=== PATIENT | female | born 1960 | race Caucasian/White ===

== ENCOUNTER → 2024-01-22 12:55 | Outpatient (REF) | payer OTHER, SELFPAY | LOC: DHCBC MAIN 12:55 | PROVIDERS: ATTENDING PHYSICIAN Internal Medicine Cardiovascular Disease; FAMILY PHYSICIAN Family Medicine | DX: I35.0 Nonrheumatic aortic (valve) stenosis (principal) | CPT/HCPCS: 93306 ==

== ENCOUNTER → 2024-06-17 13:54 | Outpatient (REF) | payer OTHER, SELFPAY | LOC: RCS 13:54 | PROVIDERS: ATTENDING PHYSICIAN Internal Medicine Cardiovascular Disease; FAMILY PHYSICIAN Family Medicine | DX: I35.0 Nonrheumatic aortic (valve) stenosis (principal) | CPT/HCPCS: 93306 ==

== ENCOUNTER 2024-07-24 10:53 | Day surgery (SDC) | payer OTHER, SELFPAY ==
[2024-07-24] VITALS (9 sets, daily range): BP systolic 106–152; BP diastolic 41–96; BMI 31.2
[2024-07-24] MEDS: NSS 247 ML IV (12:03)
--- NOTE | 2024-07-24 13:25 | ITS.CL.CATH ---
First Sampler - Catheterization
Cardiac Catheterization
Procedure Report:
CARDIAC CATHETERIZATION REPORT
Date of Procedure: 07/24/2024
Referring: Dr. Joanna Nolan
Indication: severe
PROCEDURE:
1. Coronary angiography.
ACCESS:
6 [place]ijian right radial artery.
CATHETERS:
1. 5 [place] JL3.5.
2. 5 [place] JR4.
CORONARY ANGIOGRAPHY
Dominance: right
LM: normal
LAD: large vessel giving rise to a large D1 and wrapping around the apex. No CAD.
LCx: large vessel giving rise to a small OM1/ramus, large OM2, and moderate-caliber OM3. No CAD.
RCA: large vessel giving rise to a medium caliber RPDA and several small RPL branches. No CAD.
Closure Device: TR band
Radiation dose (mGy): 254.82
DAP (cm2.Gy): 26.4814
Fluoroscopy time (minutes): 11.6
CONCLUSIONS:
1. Normal coronary arteries in a right dominant system
RECOMMENDATIONS:
1. Expectant management after cardiac catheterization via right approach
2. Primary prevention of coronary artery disease
3. Proceed with workup for surgical AVR
Copy to: Dr. Joanna Nolan; Dr. Willy Frye
Signed: Chin Mukherjee MD, PhD
[2024-07-24] MEDS: NSS 1000 IV (13:30)
== END 2024-07-24 16:30 | disposition home or self-care (01) ==
LOC: CATH 10:53
PROVIDERS: ATTENDING PHYSICIAN Student in an Organized Health Care Education/Training Program; FAMILY PHYSICIAN Family Medicine; OTHER PHYSICIAN Internal Medicine Cardiovascular Disease
DX: I08.0 Rheumatic disorders of both mitral and aortic valves (principal); Z79.82 Long term (current) use of aspirin; Z79.899 Other long term (current) drug therapy
CPT/HCPCS: 93454; 93458; C1894; Q9967

== ENCOUNTER → 2024-07-30 14:31 | Outpatient (REF) | payer OTHER, SELFPAY | LOC: HWRAD 14:31 | PROVIDERS: ATTENDING PHYSICIAN Thoracic Surgery (Cardiothoracic Vascular Surgery); FAMILY PHYSICIAN Family Medicine | DX: I35.0 Nonrheumatic aortic (valve) stenosis (principal); Z01.810 Encounter for preprocedural cardiovascular examination | CPT/HCPCS: 71275; Q9967 ==

== ENCOUNTER 2024-08-25 04:59 | Inpatient (IN) | payer OTHER, SELFPAY ==
[2024-08-14 10:06] LABS: % Basophils 0.5 % (0-2); % Immature Granulocytes 0.4 % (0-0.5); % Lymphocytes 22.7 % (20.5-51.1); % Monocytes 8.6 % (1.7-9.3); % Neutrophils 65.8 % (42.2-75.2); Absolute Eosinophils 0.2 10^3/uL (0-0.7); Absolute Lymphocytes 1.9 10^3/uL (1.2-3.4); Absolute Monocytes 0.7 10^3/uL (0.1-0.6); Absolute Neutrophils 5.5 10^3/uL (1.4-6.5); Hemoglobin 13.7 g/dL (12.0-16.0); Mean Corp Hgb Conc. 33.4 g/dL (33.0-37.0); Mean Corpuscular Hgb 29.9 pg (27.0-31.0); Mean Corpuscular Volume 89.5 fL (81.0-99.0); Mean Platelet Volume 10.9 fL (7.4-10.4); Nucleated Red Blood Cells % 0 %; Platelet Count 229 10^3/uL (130-400); Red Blood Cell Count 4.58 10^6/uL (4.20-5.40); Red Cell Dist. Width 12.6 % (11.5-14.5); White Blood Cell Count 8.4 10^3/uL (4.8-10.8)
[2024-08-14 10:07] LABS: Urine Albumin Negative (Neg - Trace); Urine Bilirubin Negative (Negative); Urine Character Clear (Clear); Urine Color Straw; Urine Glucose Negative (Negative); Urine Ketone Negative (Negative); Urine Leukocyte Negative (Negative); Urine Nitrite Negative (Negative); Urine Occult Blood Negative (Negative); Urine Specific Gravity 1.005 (<1.030); Urine Urobilinogen Negative (Neg - 1+)
--- NOTE | 2024-08-14 10:10 | CM ---
Met with Mrs. Angulo in [facility] She states prior to admission she resides with her spouse in a one story home with one step to enter. She states she has a full basement but she does not need to go down there. She states prior to admission she was
independent with ambulation and adls. She states she does not have any DME in the home. She states she has a prescription plan. She states her spouse maybe able to wharf worker for the first week when she goes home. The discharge plan is to
return home with her spouse and a home visit by the Cardiothoracic Transitional Care NUrse when medically stable.
We reviewed pre-op and post-op routines. We reviewed the shower instructions. She has the soap, written instructions and the Cardiothoracic Surgery Educational Booklet. We also reviewed restrictions including sternal restrictions and driving
restrictions. We discussed a home visit by the Cardiothoracic Transitional Care Nurse. She is agreeable to a home visit. The plan is for AVR on Sunday, August 25, 2024.
[2024-08-14 10:13] LABS: INR 0.97; PT 12.7 Sec (11.4-14.6)
[2024-08-14 10:14] LABS: APTT 31.6 Sec (23.4-35.0)
[2024-08-14 10:25] LABS: ALT (SGPT) 28 U/L (0-35); AST (SGOT) 33 U/L (14-36); Alkaline Phosphatase 93 U/L (38-126); Blood Urea Nitrogen 9 mg/dl (7-17); Carbon Dioxide 26 mmol/L (22-30); Chloride 99 mmol/L (98-107); Direct Bilirubin 0.2 mg/dl (0.0-0.4); Glucose 97 mg/dl (70-99); Potassium 4.1 mmol/L (3.5-5.1); Sodium 140 mmol/L (135-145); Total Bilirubin 0.6 mg/dl (0.2-1.3); Total Protein 7.6 g/dl (6.3-8.2); eGFR > 60.00
[2024-08-14 11:09] LABS: Glycohemoglobin (HgbA1c) 5.9 % (4.0-5.6)
[2024-08-25] VITALS (15 sets, daily range): BP systolic 91–125; BP diastolic 49–66; BMI 30.1
[2024-08-25] MEDS: PROTONIX 40 MG PO (05:21)
[2024-08-25] MEDS: MAGNESIUM OXIDE 500 MG PO (05:21)
[2024-08-25] MEDS: BACTROBAN 2% OINTMENT 1 APPLIC NASAL ×2 (05:21→20:13)
[2024-08-25] MEDS: LOPRESSOR 25 MG PO (05:21)
--- NOTE | 2024-08-25 05:30 | PTCARENOTE ---
pt admitted into room 2260. VS and weight obtained. pt confirms 2 showers @ home and NPO since 2029 yesterday. admission questions and med rec completed. clip prep and CHG cloth bath done. ABO drawn and sent. pre-op meds given. now at
beside.
--- NOTE | 2024-08-25 06:35 | W.CVOR.SURPR ---
CVOR Surgeon Immed Pre Op
-
I have examined this patient prior to performance of the scheduled procedure.
The patient's condition is unchanged from the time of the dictated/written History and
Physical and the patient is able to undergo the scheduled procedure.
SAVR possible root enlagement
[2024-08-25 07:09] LABS: ACT+ - POC 96 Seconds (82-134)
[2024-08-25 07:22] LABS: Urine Albumin Negative (Neg - Trace); Urine Bilirubin Negative (Negative); Urine Character Clear (Clear); Urine Color Straw; Urine Glucose Negative (Negative); Urine Ketone Negative (Negative); Urine Leukocyte Negative (Negative); Urine Nitrite Negative (Negative); Urine Occult Blood 1+ (Negative); Urine Urobilinogen Negative (Neg - 1+)
[2024-08-25 08:04] LABS: Urine Squamous Cell 0-2 /LPF (Few)
[2024-08-25 08:05] LABS: Urine Amorphous Seen; Urine Red Blood Cell 0-2 /HPF (0-2); Urine White Cell 0-2 /HPF (0-5)
[2024-08-25 08:06] LABS: Urine Mucus Few
[2024-08-25 08:29] LABS: B.E. - POC -2.4 mmol/L; Glucose - POC 123 mg/dl (70-99); HCO3 - POC 23 mmol/L (21-29); Hematocrit - POC 34 % PCV (37-47); Hemodilution- POC No; Hemoglobin Calculated - POC 11.6; Ionized Calcium - POC 1.19 mmol/L (1.12-1.27); PCO2 - POC 40 mmHg (35-45); PO2 - POC 445 mmHg (80-100); Potassium - POC 3.9 mmol/L (3.6-5.0); Sodium - POC 142 mmol/L (135-145); pH - POC 7.37 (7.35-7.45)
[2024-08-25 08:52] LABS: ACT+ - POC > 1003 Seconds (82-134)
[2024-08-25 08:52] LABS: ACT+ - POC > 1003 Seconds (82-134)
[2024-08-25 08:59] LABS: Glucose - POC 148 mg/dl (70-99); HCO3 - POC 27 mmol/L (21-29); Hematocrit - POC 27 % PCV (37-47); Hemodilution- POC Yes; Hemoglobin Calculated - POC 9.1; Ionized Calcium - POC 0.95 mmol/L (1.12-1.27); PCO2 - POC 33 mmHg (35-45); PO2 - POC 415 mmHg (80-100); Potassium - POC 4.3 mmol/L (3.6-5.0); Sodium - POC 139 mmol/L (135-145); pH - POC 7.52 (7.35-7.45)
[2024-08-25 09:27] LABS: B.E. - POC 1.8 mmol/L; Glucose - POC 154 mg/dl (70-99); HCO3 - POC 25 mmol/L (21-29); Hematocrit - POC 24 % PCV (37-47); Hemodilution- POC Yes; Hemoglobin Calculated - POC 8.3; Ionized Calcium - POC 1.03 mmol/L (1.12-1.27); O2 Saturation %Calculated-POC 99.9 5 (92-96); PCO2 - POC 34 mmHg (35-45); PO2 - POC 291 mmHg (80-100); Potassium - POC 4.7 mmol/L (3.6-5.0); Sodium - POC 140 mmol/L (135-145); pH - POC 7.48 (7.35-7.45)
--- NOTE | 2024-08-25 09:46 | W.PN.CD ---
Addendum entered and electronically signed by Atif Lara MD 08/25/24 12:53:
I saw and examined the patient.
The DIE FILER's note was reviewed and I agree with the note.
Comment: 63F with hypertension, dyslipidemia, and severe aortic stenosis presents for AVR.
- complicated surgery
- wean levo as able
- continue supportive care
Original Note:
Today's Communication / Plan
-
Follow telemetry
Postoperative management per CT surgery
Impression / Plan
-
BACKGROUND: 63F with hypertension, dyslipidemia, and severe aortic stenosis presents for AVR
Customer Solutions Representative: Dr. Nolan
Severe aortic stenosis s/p aortic root enlargement and surgical aortic valve replacement (23 mm bioprosthesis) 08/25/[address] Frye
-Preop LVEF 65%, postop hyperdynamic with an EF of 65-70%, initially coming off bypass she had some RV dysfunction that resolved with resting on bypass
-Postop mean gradient 10 mmHg
-EKG shows sinus rhythm with prolonged QTc, EKG in a.m.
-1 unit PRBC IntraOp and 2 bowls of Cell Saver
-Upon chest closure, she had sudden ST changes and hypotension, pressure drove up with MAP of 70s which resulted in resolution of ST segment elevation which is likely consistent with a air in the right coronary ostium
-On Levophed
-Postoperative management per CT surgery
Hypertension, losartan 50 mg on hold
Dyslipidemia, on rosuvastatin 40 mg and ezetimibe 10mg, resume when able
Prediabetes, HbA1c 5.9%
Chronic migraines
DATA:
Transthoracic echocardiogram, 06/17/2024:
Normal left ventricular size with mild concentric remodeling and normal
systolic function. No regional wall motion abnormalities are seen. LV ejection
fraction is 65-70% by Mcmahon's method of discs. Stage I diastolic dysfunction
suggestive of abnormal relaxation.
Normal right ventricular size and function.
Normal atria.
Mildly thickened mitral valve leaflets with calcification of the anterior mitral leaflet tip.
Thickened aortic valve with restricted leaflet motion, severe aortic stenosis and moderate insufficiency.
No evidence of pulmonary hypertension.
Coronary angiography, 07/24/2024:
Dominance: right
LM: normal
LAD: large vessel giving rise to a large D1 and wrapping around the apex. No CAD.
LCx: large vessel giving rise to a small OM1/ramus, large OM2, and moderate-caliber OM3. No CAD.
RCA: large vessel giving rise to a medium caliber RPDA and several small RPL branches. No CAD.
Physical Exam
Vital Signs/Labs
Vital Signs
Temp Pulse Resp Pulse Ox
98.0 F 91 17 99
08/25/24 05:04 08/25/24 05:04 08/25/24 05:04 08/25/24 05:04
08/24/24 08/25/24 08/26/24
06:59 06:59 06:59
Actual Weight 82.1 kg
08/14/24 08:47
08/14/24 08:47
PT 12.7 Sec (11.4-14.6) 08/14/24 08:47
INR 0.97 08/14/24 08:47
APTT 31.6 Sec (23.4-35.0) 08/14/24 08:47
Physical Exam
Constitutional: No acute distress and Comfortable
EENT: Anicteric and Moist mucous membranes
Cardiovascular: Rhythm & rate is regular, Pedal edema is absent and S1S2 is normal
Respiratory: Lungs clear to auscul. and Other (Mechanical ventilation)
GI: Soft, Distention absent, Flat, Non tender and Normal bowel sounds
Neuro/Psych: Other (Sedated)
Other: Skin (Warm and dry)
Data Reviewed
-
Date of Service: August 25, 2024
[2024-08-25 09:55] LABS: Glucose - POC 103 mg/dl (70-99); HCO3 - POC 24 mmol/L (21-29); Hematocrit - POC 27 % PCV (37-47); Hemodilution- POC Yes; Hemoglobin Calculated - POC 9.2; Ionized Calcium - POC 1.14 mmol/L (1.12-1.27); O2 Saturation %Calculated-POC 99.9 5 (92-96); PCO2 - POC 35 mmHg (35-45); PO2 - POC 323 mmHg (80-100); Potassium - POC 3.6 mmol/L (3.6-5.0); Sodium - POC 142 mmol/L (135-145); pH - POC 7.44 (7.35-7.45)
[2024-08-25 10:11] LABS: ACT+ - POC 911 Seconds (82-134)
[2024-08-25 10:13] LABS: B.E. - POC 0.9 mmol/L; Glucose - POC 77 mg/dl (70-99); HCO3 - POC 25 mmol/L (21-29); Hematocrit - POC 26 % PCV (37-47); Hemodilution- POC Yes; Hemoglobin Calculated - POC 8.9; Ionized Calcium - POC 1.13 mmol/L (1.12-1.27); PCO2 - POC 36 mmHg (35-45); PO2 - POC 368 mmHg (80-100); Potassium - POC 3.4 mmol/L (3.6-5.0); Sodium - POC 143 mmol/L (135-145); pH - POC 7.45 (7.35-7.45)
[2024-08-25 10:24] LABS: ACT+ - POC 555 Seconds (82-134)
[2024-08-25 10:38] LABS: B.E. - POC -0.5 mmol/L; Glucose - POC 78 mg/dl (70-99); HCO3 - POC 24 mmol/L (21-29); Hematocrit - POC 26 % PCV (37-47); Hemodilution- POC Yes; Ionized Calcium - POC 1.08 mmol/L (1.12-1.27); PCO2 - POC 37 mmHg (35-45); PO2 - POC 354 mmHg (80-100); POC Comment WARM; Potassium - POC 3.9 mmol/L (3.6-5.0); Sodium - POC 144 mmol/L (135-145); pH - POC 7.42 (7.35-7.45)
[2024-08-25 10:50] LABS: ACT+ - POC 640 Seconds (82-134)
[2024-08-25 10:56] LABS: Glucose - POC 86 mg/dl (70-99); HCO3 - POC 24 mmol/L (21-29); Hematocrit - POC 23 % PCV (37-47); Hemodilution- POC Yes; Hemoglobin Calculated - POC 7.7; Ionized Calcium - POC 1.41 mmol/L (1.12-1.27); PCO2 - POC 33 mmHg (35-45); PO2 - POC 545 mmHg (80-100); Potassium - POC 3.5 mmol/L (3.6-5.0); Sodium - POC 144 mmol/L (135-145); pH - POC 7.47 (7.35-7.45)
[2024-08-25 11:02] LABS: ACT+ - POC 159 Seconds (82-134)
--- NOTE | 2024-08-25 11:26 | CM ---
Chart reviewed. Patient is in the OR today. Patient is independent of ADLS, lives with her in a 1 STH, 1 SOFIYA, 0 DME. Plan is for the patient to return home with CT Transitional RN. CM to follow
[2024-08-25 11:40] LABS: ACT+ - POC > 1003 Seconds (82-134)
[2024-08-25 11:40] LABS: ACT+ - POC > 1003 Seconds (82-134)
[2024-08-25 11:46] LABS: B.E. - POC -4.4 mmol/L; Glucose - POC 111 mg/dl (70-99); HCO3 - POC 20 mmol/L (21-29); Hematocrit - POC 24 % PCV (37-47); Hemodilution- POC Yes; Hemoglobin Calculated - POC 8.1; Ionized Calcium - POC 1.22 mmol/L (1.12-1.27); PCO2 - POC 31 mmHg (35-45); PO2 - POC 608 mmHg (80-100); Potassium - POC 3.3 mmol/L (3.6-5.0); Sodium - POC 143 mmol/L (135-145); pH - POC 7.41 (7.35-7.45)
--- NOTE | 2024-08-25 11:47 | CON.INTV ---
Consultation
Consultation Request
Date/Time Consultation Requested: 08/25/2024 - 1127
Date/Time Consultation Performed: 08/25/2024 - 1143
Requesting Provider: Farrah Go PA-C
Performing Provider: Morgan Hoang MD
Reason for Consultation: SAVR
Medical History
-
Chief Complaint: Elective SAVR
History of Present Illness:
63-year-old female non-smoker with a past medical history of severe aortic stenosis, arthritis, hypercholesterolemia, hypertension and migraine headaches who presents with elective SAVR. Patient known to cardiothoracic surgery with Dr. Frye with
last office visit on 07/31/2024. Patient has history of nonrheumatic aortic valve stenosis which has progressed. Per recent echo in June 2024, her peak/mean gradient was 77/49 mmHg, respectively. Her CHAR reached threshold for severe stenosis at
0.7. LHC performed on 07/24/2024 shows normal coronary arteries and a right dominant system. Patient does endorse SOB when walking on incline with chest heaviness and intermittent lightheadedness and bendopnea. She says that her functional status
has declined especially when out in the heat. Surgical aortic valve replacement was discussed including its risks and benefits. Today she presents for SAVR which she obtained without any immediate complications and was transferred to the CVICU
postoperatively. Terminal System Operator services consulted for additional management/recommendations.
When I saw the patient, she was in bed, already extubated and currently on 6 L/min nasal cannula saturating 100%. Heart rate 78, BP via A-line 111/59, PAP: 25/17, CO/CI: 2.73/1.44, and BP via NIBP: 106/57. She is currently on insulin drip at 2.6
units/hr, Levophed at 1mcg/min. Mediastinal chest tubes x [address] Patient's , Watson, at bedside. All questions were answered. Patient is lethargic from recent sedation but otherwise has no complaints. She denies chest pain, SHIN,
abdominal pain, nausea, fevers or chills.
PMHx: Hypercholesterolemia, migraine headache, hypertension, severe aortic stenosis, arthritis, snoring
PSHx: , left bunionectomy, laparoscopic cholecystectomy, C4-7 ACDF, tubal ligation
Past Medical History
Past Medical History: Other (Above as per HPI)
Past Surgical History: Other (Above as per HPI)
Social History
Tobacco: Non-smoker
Alcohol: Occasional (Few drinks on the weekend)
Personal:
Living: With Family
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
Family History
Family History: CAD (Father: History of NV + valve replacement; Mother: CAD), Cancer (Mother: Lung cancer + breast cancer) and Other (Sibling + mother: A-fib)
Allergies / Home Medications
Allergies
Allergy/AdvReac Type Severity Reaction Status Date / Time
ketoconazole Allergy Rash Verified 08/11/24 11:11
Sulfa (Sulfonamide Allergy Hives Verified 08/11/24 11:11
Antibiotics)
sulfamethoxazole Allergy Unknown Verified 08/11/24 11:11
trimethoprim Allergy Unknown Verified 08/11/24 11:11
Home Medications
�Medication �Instructions �Recorded �Confirmed �Last Taken �Type
docusate sodium 100 mg capsule 300 mg PO DAILY 12/05/21 08/25/24 08/24/24 18:00 History
(Dulcolax Stool Softener
(docusate))
rosuvastatin 40 mg tablet 40 mg PO QPM 12/05/21 08/25/24 08/24/24 05:00 History
Lactobacillus acidophilus 3 tab PO DAILY 07/24/24 08/25/24 08/24/24 05:00 History
(Acidophilus chewable tablet)
aspirin 81 mg chewable tablet 81 mg PO DAILY 07/24/24 08/25/24 08/24/24 05:00 History
ezetimibe 10 mg tablet 10 mg PO QPM 07/24/24 08/25/24 08/24/24 18:00 History
fluticasone propionate 50 1 spray intranasal PRN PRN 07/24/24 08/25/24 08/24/24 05:00 History
mcg/actuation nasal allergies
spray,suspension
losartan 50 mg tablet 50 mg PO DAILY 07/24/24 08/25/24 08/22/24 05:00 History
pimecrolimus 1 % topical cream 1 applic topical PRN PRN dermatitis 07/24/24 08/25/24 08/23/24 History
polyethylene glycol 3350 17 gram 17 g PO DAILY 07/24/24 08/25/24 08/23/24 History
oral powder packet (Miralax)
triamcinolone acetonide 0.05 % 1 applic topical DAILY PRN rash 07/24/24 08/25/24 08/23/24 History
topical ointment
diphenhydramine HCl 25 mg capsule 25 mg PO HS PRN allergy symptoms 08/11/24 08/25/24 08/23/24 History
(Benadryl)
Review of Systems
-
History Source: Patient
All other systems: Negative unless noted
Vitals / Labs / Diagnostic Testing
Vital Signs
Temp Pulse Resp Pulse Ox
98.0 F 91 17 99
08/25/24 05:04 08/25/24 05:04 08/25/24 05:04 08/25/24 05:04
Diagnostic Testing:
Physical Exam
-
HEENT: Normocephalic and Anicteric
Cardiovascular: S1/S2, Rub and Peripheral Edema (negative)
Respiratory: Wheeze (negative), Rales (negative), Rhonchi (negative) and Non-Labored Respirations
GI: Soft, Non Distended, Non Tender and Normal Bowel Sounds
Neurology: Tremors (negative) and Other (Lethargic but answering questions appropriately)
Skin: Warm and Dry
General: Respiratory Distress (negative), Chills (negative) and Sweats (negative)
Assessment
-
Assessment: 63-year-old female non-smoker with a past medical history of severe aortic stenosis, arthritis, hypercholesterolemia, hypertension and migraine headaches who presents with elective SAVR. Patient known to cardiothoracic surgery with "Anil"Melva with last office visit on 07/31/2024. Patient has history of nonrheumatic aortic valve stenosis which has progressed. Per recent echo in June 2024, her peak/mean gradient was 77/49 mmHg, respectively. Her CHAR reached threshold for severe
stenosis at 0.7. LHC performed on 07/24/2024 shows normal coronary arteries and a right dominant system. Patient does endorse SOB when walking on incline with chest heaviness and intermittent lightheadedness and bendopnea. She says that her
functional status has declined especially when out in the heat. Surgical aortic valve replacement was discussed including its risks and benefits. On 08/25/2024, she underwent a SAVR without any immediate complications and was transferred to the
CVICU postoperatively. Terminal System Operator services consulted for additional management/recommendations.
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
Impression:
#Severe aortic stenosis with moderate insufficiency s/p SAVR (POD #0)
#Aortic root enlargement
#Hypertension
#Hypercholesterolemia
#Migraine headaches
#Snoring
Plan:
Patient was extubated today to nasal cannula and is currently saturating 100% on 6 L/min
prn nebulized bronchodilators � patient currently not bronchospastic
Pulmonary artery catheter parameters will be followed
Pressors/antihypertensive/inotropes/diuretics will be provided as needed
Maintain MAP>65
Replete electrolytes with K>4, Mg>2
Monitor chest tube output (mediastinal chest tubes x 2)
Monitor hemoglobin
Monitor platelet count and coags
Transfuse blood products as needed to maintain Hb>7g/dL, plt>50k (given post-operative status)
CT surgery managing chest tubes
Monitor blood sugar to maintain euglycemia with goal BG 140-180
Insulin drip per protocol
Aspiration precautions
DVT prophylaxis
Early nutrition
Early mobilization
Critical care statement: A total of 46 minutes of critical care time was provided for this patient today. This includes management of ventilator, spontaneous breathing trial, arterial blood gases, pressors, of unstable vital signs, evaluation of the
patient at bedside, reviewing the patient's pertinent medical records including radiographs, microbiology, laboratory evaluations, and discussion with primary team and critical care nursing.
Data:
CXR 08/25/2024: Support apparatus in position; No pneumothorax.
--- NOTE | 2024-08-25 11:50 | W.PN.CT.SURG ---
CT Surgery Operative Note
-
CARDIAC SURGERY OPERATIVE REPORT
Preoperative Diagnosis: Aortic valve stenosis with moderate degree of aortic valve insufficiency
Postoperative Diagnosis: Same
Procedure(s) Performed:
1. Standard sternotomy with aortic and right atrial cannulation
2. Aortic root enlargement [Manouguian]
3. Surgical aortic valve replacement [23 mm bioprosthesis]
4. Transesophageal echocardiography
5. Placement ventricular pacing wires
Date of Surgery: 08/21/2024
Comorbidities:
1. Severe aortic valve stenosis, with moderate degree of aortic valve insufficiency, appeared either rheumatic or congenital with very thickened leaflets
2. Hypertension
3. Hyperlipidemia
4. Migraines
5. Chronic diastolic dysfunction with mild to moderate degree of hypertrophic left ventricle
6. Morbidly obese, BMI greater than 30
7. Mild mitral valve insufficiency
Attending Surgeon: Willy Frye MD, MS
Assistants: Nancy Torres PA-C (present and necessary to first line production supervisor, retraction, suction, exposure, suture management, and wound closure under my direction)
Anesthesiology: Alistair Brandon MD and Gilbert Choudhary CRNA
Scrub and Circulating RNs: Lilly Newberry, BENI, Juno Bailey RN
Packing Floor Worker: Abigail Cheek CCP
Anesthesia: GETA
EBL: per perfusion records
Products: 2 PRBC, 2 bowls of CellSaver Scavenged Blood
CPB Time: 142 minutes
Aortic Cross Clamp Time: 104 minutes
Indication(s) for Procedures: This is a 63-year-old female with longstanding aortic valve stenosis. She has a peak/mean gradient 77/49 mmHg and a small LVOT measuring 1.8 cm. CHAR calculated to be 0.7. She also at least mild to moderate aortic
valve insufficiency. There is some calcification of her anterior leaflet of the mitral valve the free margin resulting in mild insufficiency. Her BSA is 1.9 and her BMI is 30.8. From a symptomatology standpoint she has been developing more
shortness of breath with walking and inclines as well as chest heaviness and intermittent lightheadedness with dyspnea. Given her young age, she was referred for surgical arctic valve replacement. Preoperative CT angiogram of the chest
demonstrated a very abnormally appearing aortic valve with thickened leaflets with no significant calcification. Measuring her aortic valve diameter resulted in a small root likely necessitating an aortic root enlargement. Her STS risk was
reviewed, and she accepted those risks and so we proceeded with surgery.
Aortic Valve Description: Very abnormal appearing valve, fused left right coronary cusp, heavily thickened leaflets measuring approximately 1 cm in thickness. It had a rheumatic valve appearance or congenital appearing valve. Left and right
coronary with it located in the normal anatomic positions, the right coronary ostium is very small
Findings: Left ventricular ejection fraction preoperatively was 65% with no significant regional wall motion abnormalities. Following surgery she was slightly hyperdynamic with an EF of 65 to 70% with no new regional wall motion abnormalities.
Initially coming off of cardiopulmonary bypass she had some RV dysfunction that resolved with resting on cardiopulmonary bypass. Her aortic root was extremely small and measured 20 to 21mm in diameter on echocardiogram. I had difficulty even
placing a 19 mm surgical aortic valve sizer in place. A Manouguian style aortic root enlargement was performed by cutting down the left none commissure onto the anterior leaflet of the mitral valve. A large patch was then sized and sewn into place
effectively enlarging the root. Circumferential sutures were placed using a combination of pledgeted sutures around the patch and nonpledgeted sutures for the rest of the annulus. A total of seventeen 2-0 Ethibond sutures were placed securing a 23
[address] in place with core knots. Initially coming off of cardiopulmonary bypass she had trace to mild paravalvular insufficiency at the 5:00 and 7 o'clock position. After giving protamine, this significantly improved trace. The mean
gradient across her new bioprosthesis was 10 mmHg. She was in sinus bradycardia after short period of ventricular pacing, she did not require inotropic support, she received 1 unit of blood for anemia on pump, and 2 bowls of Cell Saver blood from
the surgical field. Upon chest closure and while closing fascia, she had sudden ST segment changes and hypotension. Transesophageal echocardiogram revealed no regional wall motion abnormality. We drove the pressure up with a MAP of 70s to 80s
which resulted in resolution of her ST segment elevation. This was likely consistent with air into the right coronary ostium. Following this episode, she was back on low-dose Levophed and otherwise stable.
Specimen(s): Aortic valve leaflets.
Prosthesis:
1. 23 mm Gomez Inspiris Resilia surgical aortic valve, serial #[id number]
2. Bovine pericardial patch, serial number [id number]
Description of Procedure: The patient was taken to the operating room. Their identity and procedure to be performed were verified and they were positioned supine on the operating table. Induction via general anesthesia with endotracheal intubation
was performed and central venous access and arterial monitoring were inserted. A preoperative transesophageal echocardiogram was performed to assess cardiac function and valvular function. The patient was then prepped and draped from chin to feet in
a sterile fashion. A preoperative time-out was performed with all members of the team present. A midline chest incision was performed along with median sternotomy. The innominate vein was isolated. Full heparinization was given (a total of 43,000
units). We created a pericardial well. The aortic cannulation site was chosen where it was soft, pliable, and free of calcium. Cannulation was performed with an arterial cannula in the ascending aorta and a triple-stage venous cannula through the
right atrial appendage. The arterial cannula line had an appropriate bounce and correlating pressures with test dosing. Next, a root vent/antegrade cannula was inserted into the ascending aorta. The ACT was confirmed to be over 400 and retrograde
autologous priming was performed before commencing cardiopulmonary bypass. The pulmonary artery was away from the aorta to facilitate a clamp site and aortotomy. I attempted to place an LV vent via the right superior pulmonary vein, but
was not able to do this given the small caliber of the vessel. The aortic cross-clamp was placed after decreasing the flow on the bypass and mean arterial pressure. A total of 1.2L initial dose of antegrade Del-Nido cardioplegia solution was given
and planned for re-dosing every 75 minutes as necessary. There was rapid electro-mechanical arrest of the heart at 500 cc of cardioplegia. The left ventricle was observed for distention on echocardiogram and manual palpation. Cold slush was placed
into a sponge and topically on the RV while we systemically cooled to 32 degrees centigrade.
Carbon dioxide was used to flood the field. We manually identified the location of the right coronary take off. An aortotomy was made approximately 2cm above the sinotubular junction. The location of both left and right coronary vessels were
visualized in the root.The leaflets were excised and sent for pathological assessment. I gave additional cardioplegia down the ostial using a soft tip cannula after performing the aortotomy and resecting the valve.The annulus was debrided of any
thickened tissue being mindful of the annulus and membranous septum. There was no real calcium. I was unable to place a 19 mm sizer. The aortotomy was then carried down towards the left none commissure incision was carried down to the anterior
leaflet of the mitral valve. A large patch was then fashioned and a teardrop shaped. I sewed the patch at the level of the mitral valve with 4-0 Prolene running up on each side until reaching the original aortotomy. Additional tacking sutures
were placed here to secure the suture line. Next, A total of 12 Non-pledgeted and 5 pledgeted 2-0 ethibond inverted annular sutures were placed [id number] circumferentially - at the point of the patch, I placed the pledgets on the outside to
inside. These were brought through the sewing cuff of the prosthetic valve which as then parachuted into place. The left and right coronary ostia were visualized and were unobstructed by the valve. A Cor-Knot device was used to secure the annular
sutures. The valve was inspected and was well seated. The aortotomy was approximated with 4-0 prolene incorporating the patch. De-airing maneuvers were performed and temporary bipolar ventricular pacing wires were placed on the base of the right
ventricle. The patient was placed in a Trendelenburg position and flows on bypass were lowered. The aortic cross clamp was removed and flows were slowly brought back up. The aortotomy appeared hemostatic. Transesophageal echocardiography revealed
no significant paravalvular leak and appropriate prosthetic function. Once de-airing was satisfactory, the root vents were removed. After verifying acceptable parameters, we initiated weaning from cardiopulmonary bypass. Once we were off
cardiopulmonary bypass, the venous cannula was clamped and removed. A test dose of protamine was administered and the patient was monitored for any adverse reaction before resuming protamine. Once half of the protamine dose was delivered, pump
suckers were turned off and the systolic blood pressure was lowered for aortic decannulation. The aortic cannula was removed and pursestrings were tied down. Any additional repair sutures were placed. The root was then packed with hemostatic
agent. All cannulation sites were oversewn with a 4-0 prolene. The aortotomy suture line was inspected and hemostasis was confirmed. Mediastinal hemostasis was obtained. Two 24Fr Michael drains were placed within the pericardium. The sternum was
approximated with 4 #7 single and 3 #8 double stainless steel wires. Fascia was approximated with #1 vicryl suture. The subcutaneous, dermis and epidermis were closed in layers in a running fashion. The skin wound was cleansed and dressed.
All instrument, sponge, and needle counts were confirmed to be correct x 2 at the end of the operation. The patient was transferred to the cardiac intensive care unit in critical but stable condition.
I, Dr. Willy Frye, was present, scrubbed for, and performed all critical elements of this procedure.
Willy Frye MD, MS
Cardiothoracic Surgeon
[facility]
This operative dictation was created using the SwitchNote dictation system. Please excuse any grammatical, typographical, or 'sound alike' errors
[2024-08-25 11:52] LABS: ACT+ - POC 120 Seconds (82-134)
--- NOTE | 2024-08-25 12:00 | PTCARENOTE ---
Addendum entered by Johana Mcgowan RN 08/25/24 13:07:
Sternal incision approximated with skin glue intact. Chest tube dressing CDI.
Original Note:
Pt received from [facility] intubated and sedated on precedex gtt. Unresponsive. PERRLA 3mm brisk. POX 100%. Intubated with 8.0 ETT 24cm at the lip. SIMV 60% 12 500 5/5. No breaths above the vent noted. Mediastinal chest tubes x2 y-sited to 1 atrium to
-20cm suction draining red fluid, output WNL. No air leaks, tidaling, or crepitus. Lungs bilaterally anterior clear. SR with PACs on tele with rates in the 60s. BP supported with levophed. CI 1.12 CT PUBLIC RELATIONS ANALYST aware. PA pressures 30s/20s. CVP 15. Bilateral
radial and DP pulses palpable. No edema noted. Epicardial v-wire to back up VVI 30/10/2. No pacing noted. +Rub. Abdomen soft, hypoactive BS. Woods intact draining adequate amounts of clear yellow urine. Right IJ cordis and swan floated to 42cm. Left
radial maximo intact with appropriate waveform. All lines flushed, leveled, and zeroed. Right hand 20g PIV intact infusing insulin per Critical Care Glycemic Protocol. See MAR for medication administration. See worklist for complete nursing
assessment. Post op EKG, labs, and CXR completed.
[2024-08-25 12:25] LABS: Glucose - Point of Care 115 mg/dl (70-99)
[2024-08-25 12:29] LABS: B.E. -4.3 mmol/L; HCO3 20.1 mmol/L (21-28); Ionized Calcium 1.14 mMOL/L (1.15-1.33); O2 Saturation % 99.6 % (94-98); PCO2 34 mmHg (32-35); PO2 154 mmHg (83-108); Potassium 3.4 mMOL/L (3.5-5.1); Sodium 138 mMOL/L (136-145); pH 7.38 (7.35-7.45)
[2024-08-25 12:31] LABS: Hematocrit 36.7 % (37.0-47.0); Hemoglobin 12.9 g/dL (12.0-16.0); Platelet Count 111 10^3/uL (130-400)
[2024-08-25] MEDS: NOVOLOG FLEXPEN SC ×3 (12:32→16:46)
[2024-08-25] MEDS: ANCEF 10 IV ×2 (12:32)
[2024-08-25] MEDS: NEURONTIN PO (12:32)
[2024-08-25] MEDS: NSS 500 IV (12:33)
[2024-08-25 12:37] LABS: Mixed Venous O2 Saturation 68.8 %
[2024-08-25] MEDS: KCL 50 IV ×2 (12:38→14:47)
[2024-08-25 12:42] LABS: PT 18.9 Sec (11.4-14.6)
[2024-08-25 13:01] LABS: Glucose - Point of Care 150 mg/dl (70-99)
[2024-08-25 13:15] LABS: APTT 43.8 Sec (23.4-35.0)
[2024-08-25 13:23] LABS: Blood Urea Nitrogen 9 mg/dl (7-17); Estimated Creatinine Clearance 89 ml/min; Glucose 120 mg/dl (70-99); Magnesium 3.4 mg/dl (1.6-2.3)
[2024-08-25] MEDS: TYLENOL PO (13:31)
[2024-08-25] MEDS: CALCIUM CHLORIDE 10% SYRINGE 50 MG IV (13:44)
[2024-08-25] MEDS: CALCIUM CHLORIDE 10% SYRINGE 50 ML IV (13:44)
[2024-08-25 14:03] LABS: Glucose - Point of Care 104 mg/dl (70-99)
--- NOTE | 2024-08-25 14:06 | W.PN.UPDATE ---
Update Note
Progress Note Update
63 y/o female presents electively on 08/[address] Frye
Crystalloid:� 1200
U.O.:� 350
UF:� 1000
Blood:� 2uPRBCs and 500ml cell saver
Wires:� V
Inotropes: None�
Pressors:� Levophed
Sedatives:� Precedex
�
NEURO: sedated on precedex, pupils +3mm B/L
RESP: #8OT @24cm> 500/60%/12/5. Lungs clear B/L. 2 mediastinal (5cc on arrival) chest tubes to -20cm suction. Sanguineous drainage
CV: RRR +S1, S2, no S3, no�rub, no murmur. Dermabond to median sternotomy. RIJ w/[place] locked @ 42cm. PA 33/15; CVP 15; C.O 1.79/CI 0.9
ABD: round, soft, no BS
EXT: no edema, +2/4 DP pulses B/L, no femoral bruit, left radial A-line intact
: Woods with clear yellow urine
�
A/P: POD #0 s/p Surgical aortic valve replacement [23 mm bioprosthesis] and root enlargement
PETER: EF�65% mild JUDE
- wean and extubate
- Monitor CT and urine output
- Follow up labs and CXR
- Wean levophed for systolic blood pressures less than 120
- Will start ASA tonight
- Kristine upon arrival 0.78; will continue to trend
>>t/c Very low dose dobutamine
- MVO2 pending
- EKG pending and will send to cards
- Cards consulted
-Avoid additional IV fluids as able
- will need instruction regarding antibiotic prophylaxis for dental and invasive procedures
# acute surgical blood loss anemia-expected
- trend CBC
�
# Hyperlipidemia
- resume�statin when tolerating PO
--- NOTE | 2024-08-25 14:30 | PTCARENOTE ---
RAAS -2. Able to open eyes to command and follows commands to shake her head yes/no, squeeze hands, and wiggle toes. Pt bathed with CHG wipes. Turned from side to side without significant dumps from chest tubes. pt tolerated.
--- NOTE | 2024-08-25 15:10 | PTCARENOTE ---
Pt initiating breaths over the vent. RT notified and at bedside to place pt on cpap wean. Pt tolerating. POX 99%.
[2024-08-25 15:13] LABS: Glucose - Point of Care 128 mg/dl (70-99)
[2024-08-25 15:51] LABS: B.E. -5.1 mmol/L; HCO3 21.2 mmol/L (21-28); Ionized Calcium 1.37 mMOL/L (1.15-1.33); O2 Saturation % 99.9 % (94-98); PCO2 43 mmHg (32-35); PO2 163 mmHg (83-108); Potassium 4.9 mMOL/L (3.5-5.1)
[2024-08-25 15:55] LABS: Hemoglobin 13.6 g/dL (12.0-16.0); Platelet Count 150 10^3/uL (130-400)
--- NOTE | 2024-08-25 15:59 | PTCARENOTE ---
Pt extubated to 6L NC. POX 99%. Pt tolerated. IS completed 750ml achieved. Pt able to state her name, . Drowsy and oriented x4.
--- NOTE | 2024-08-25 16:00 | PTCARENOTE ---
Pt reassessed. Drowsy but oriented x4. States sternal and back/shoulder pain 06/10-see MAR. CRISTOBAL with equal, generalized strength. NSR on tele with rates in the 70s. BP supported with levophed. CI 1.47, CT PA aware. PA pressures 30s/10s, CVP10. POX
99% on 6L NC. CT output WNL. Woods draining adequate amounts clear yellow urine. Lines intact.
--- NOTE | 2024-08-25 16:04 | RESPNOTE ---
patient extubated at 1600 without incident. 99% on 6L.
[2024-08-25 16:06] LABS: Glucose - Point of Care 132 mg/dl (70-99)
[2024-08-25] MEDS: TORADOL 15 MG IV ×2 (16:15→22:46)
[2024-08-25] MEDS: SODIUM BICARBONATE 100 MEQ IV (16:16)
[2024-08-25] MEDS: NEURONTIN 100 MG PO ×2 (17:02→22:31)
[2024-08-25] MEDS: ROXICODONE 5 MG PO (17:02)
[2024-08-25] MEDS: PACERONE 200 MG PO ×2 (17:02→22:31)
[2024-08-25 17:07] LABS: Glucose - Point of Care 126 mg/dl (70-99)
[2024-08-25] MEDS: LOW STRENGTH ASPIRIN 81 MG PO (17:34)
[2024-08-25] MEDS: ZOFRAN 4 MG IV (17:36)
[2024-08-25 17:52] LABS: B.E. -1.1 mmol/L; HCO3 24.8 mmol/L (21-28); O2 Saturation % 99.9 % (94-98); PCO2 45 mmHg (32-35); PO2 166 mmHg (83-108); pH 7.35 (7.35-7.45)
[2024-08-25] MEDS: CRESTOR 40 MG PO (18:07)
[2024-08-25] MEDS: ZETIA 10 MG PO (18:07)
[2024-08-25 19:05] LABS: Glucose - Point of Care 108 mg/dl (70-99)
[2024-08-25] MEDS: MUCINEX 600 MG PO (20:13)
[2024-08-25] MEDS: ANCEF 5 IV (20:13)
[2024-08-25] MEDS: SENOKOT-S 1 TABLET PO (20:14)
[2024-08-25 20:15] LABS: B.E. -0.7 mmol/L; HCO3 24.2 mmol/L (21-28); Ionized Calcium 1.19 mMOL/L (1.15-1.33); O2 Saturation % 99.7 % (94-98); PCO2 40 mmHg (32-35); PO2 145 mmHg (83-108); Potassium 4.4 mMOL/L (3.5-5.1); pH 7.39 (7.35-7.45)
[2024-08-25 20:18] LABS: Mixed Venous O2 Saturation 70.9 %
--- NOTE | 2024-08-25 20:40 | PTCARENOTE ---
Report received from BENI Yan. Walking rounds done. Pt assessed. VS recorded. Pt awake, alert, oriented x 4. Speech clear. Moving all extremities equally. Pt on 4L/NC. Sats 100%. BBS present. Decreased to B bases. CDB and IS done. IS peak 1250 mls.
Pt in SR, occasional PAC. Audible heart tones. Most recent CI 1.69. MVO2 and ABG sent per order of PA. MVO2 70. Order given by PA to keep SBP ~ 120. Cardene gtt started at 2036 at 2.5 mg/hr for SBP 133, MAP 90. UO 30-40 mls/hr (clear, yellow
urine). PA recommends increasing Cardene gtt if SBP increased and sustained in the upper 120's. V wire attached to temp PPM. Back up rate 50, mA 6, sens 3. Fpr pusle and wound assessments, see flowsheets. Belly soft, nontender. Hypoactive bs x 4.
Tolerating ice chips and sips of water. Glycemic protocol maintained. C/o intermittent mild pain with coughing. Mucinex added to regimen. Ongoing plan of care.
[2024-08-25 21:06] LABS: Glucose - Point of Care 104 mg/dl (70-99)
[2024-08-25] MEDS: TYLENOL 1000 MG PO (22:32)
--- NOTE | 2024-08-25 22:45 | PTCARENOTE ---
Elevated BP 136 systolic. MAP 89-90's. Cardene gtt increased to 5 mg/hr. Toradol 15 mg IV given for 4/10 sternal pain. CI checked and is 1.77. PA aware.
[2024-08-25 23:27] LABS: Glucose - Point of Care 115 mg/dl (70-99)
[2024-08-26] VITALS (40 sets, daily range): BP systolic 80–145; BP diastolic 42–87; PULSE 70; O2SAT 95; BMI 32.2; BMI 31.9
[2024-08-26 01:48] LABS: Glucose - Point of Care 100 mg/dl (70-99)
[2024-08-26] MEDS: ROXICODONE 2.5 MG PO (01:57)
--- NOTE | 2024-08-26 02:45 | PTCARENOTE ---
Pt c/o 5/10 sternal pain. Roxicodone 2.5 mg given. BP sustained at 126 systolic. Cardene gtt increased to 7.5 mg/hr. UO 25 mls/hr for past 3 hours. Most recent CI 1.78. ELIZABETH Waite made aware of CI and UO, pain.
[2024-08-26] MEDS: CARDENE 200 IV ×2 (03:06→07:52)
[2024-08-26 04:24] LABS: Glucose - Point of Care 116 mg/dl (70-99)
[2024-08-26] MEDS: ANCEF 5 IV ×2 (04:34→12:11)
[2024-08-26 04:43] LABS: Mixed Venous O2 Saturation 66.9 %
[2024-08-26 04:49] LABS: Hematocrit 32.9 % (37.0-47.0); Hemoglobin 11.5 g/dL (12.0-16.0); Mean Corpuscular Hgb 29.6 pg (27.0-31.0); Mean Corpuscular Volume 84.6 fL (81.0-99.0); Platelet Count 101 10^3/uL (130-400); Red Blood Cell Count 3.89 10^6/uL (4.20-5.40); Red Cell Dist. Width 13.2 % (11.5-14.5); White Blood Cell Count 18.7 10^3/uL (4.8-10.8)
[2024-08-26] MEDS: DILAUDID 0.25 MG IV (04:53)
[2024-08-26 05:03] LABS: Blood Urea Nitrogen 15 mg/dl (7-17); Calcium 8.7 mg/dl (8.4-10.2); Carbon Dioxide 23 mmol/L (22-30); Chloride 108 mmol/L (98-107); Estimated Creatinine Clearance 89 ml/min; Glucose 118 mg/dl (70-99); Magnesium 2.3 mg/dl (1.6-2.3); Potassium 4.7 mmol/L (3.5-5.1); Sodium 140 mmol/L (135-145); eGFR > 60.00
--- NOTE | 2024-08-26 06:00 | PTCARENOTE ---
Labs and EKG done this am. CXR done this am. Dilaudid 0.25 mg IV given at 0453 for 5/10 sternal pain. Pt attempted to have BM on bedpan without success. Last CI 1.82. PA made aware. Cardene gtt at 7.5 mg/hr to keep SBP ~ 120's. Pt in SR.
[2024-08-26 06:37] LABS: Glucose - Point of Care 95 mg/dl (70-99)
[2024-08-26] MEDS: TYLENOL 1000 MG PO ×3 (07:05→22:34)
--- NOTE | 2024-08-26 07:20 | W.PN.CT ---
Today's Communication / Plan
-
-pod #1
-no issues overnight
-CI 1.78, CO 3.38, SVR 1372, mVO2 66.9. Drips: insulin, Cardene 7.5
-CT output: 2 meds 130/340 in 12/24 hrs
-deline
-? d/c Woods
-d/c insulin
-current meds (ASA, Amio, Lopressor, Crestor, Zetia, iv iron, Mucinex, Protonix)
-encourage IS, OOB
Assessment / Plan
-
- Severe aortic valve stenosis, with moderate degree of aortic valve insufficiency, appeared either rheumatic or congenital with very thickened leaflets
-s/p Surgical aortic valve replacement [23 mm Inspiris Resilia bioprosthesis] and Aortic root enlargement [Manouguian] with bovine pericardial patch on 08/25/[address] Frye, pod #1
- Intraop PETER: LVEF preop was 65% with no significant regional wma. Following surgery she was slightly hyperdynamic with an EF of 65 to 70% with no new regional wma. Initially coming off of cardiopulmonary bypass she had some RV dysfunction that
resolved with resting on cardiopulmonary bypass. The mean gradient across her new bioprosthesis was 10 mmHg.
- Acute intraop transient ST segment elevation with hypotension, likely consistent with air into the right coronary ostium- resolved
- Hypertension
- Hyperlipidemia
- Class 1 obesity, BMI 30
- Migraines
- Chronic diastolic dysfunction with mild to moderate degree of hypertrophic left ventricle
- Mild mitral valve insufficiency
- Non-smoker
- Acute postop blood loss anemia - stable, s/p 2 pRBCs and 2 cell saver in OR
- Acute postop thrombocytopenia
- Acute postop atelectasis
- Acute postop hypovolemia with subsequent hypervolemia
Discussed patient care with: Nursing and Care Team
Subjective
Procedure
-s/p Surgical aortic valve replacement [23 mm Inspiris Resilia bioprosthesis] and Aortic root enlargement [Manouguian] on 08/25/[address] Frye
-
Date of Service: August 26, 2024
Objective Data
-
PT 18.9 Sec (11.4-14.6) H 08/25/24 12:17
INR 1.60 08/25/24 12:17
APTT 43.8 Sec (23.4-35.0) H 08/25/24 12:17
Vital Signs
Vital Signs
Temp Pulse Resp BP Pulse Ox
98.9 F 84 12 106/58 98
08/26/24 00:00 08/26/24 01:45 08/26/24 01:45 08/26/24 01:00 08/26/24 01:45
CT Intake/Output/Weight
08/25/24 08/25/24 08/26/24
06:59 18:59 06:59
Intake Total 588.5 / 874.7 286.2 / 874.7
Output Total 745 / 1005 260 / 1005
Balance -156.5 / -130.3 26.2 / -130.3
SaO2: 98
Physical Exam
-
General: Awake and AOx3
Cardiovascular: Regular rate & rhythm, No Murmurs and No Rub
Respiratory: Decreased Breath Sounds
Sternum: Stable
Incision: Clean, Dry and Dressing Intact
Extremities: Other (trace edema b/l, 2+ DPs b/l)
Abdomen: soft, nontender, nondistended, + decreased sounds
Data Reviewed
-
Lab Results: Results Reviewed
Medications: Active Meds Reviewed
Chest X-Ray: Report Reviewed and Image Reviewed
ECG: Report Reviewed and Image Reviewed
--- NOTE | 2024-08-26 07:22 | W.PN.CD ---
Today's Communication / Plan
-
Routine post operative care.
Encourage incentive spirometry.
Pain/chest tube management per CTS.
Impression / Plan
-
Impression/Plan: 63F with hypertension, dyslipidemia, and severe aortic stenosis admitted for elective SAVR.
#Severe aortic stenosis
-Chronic.
-s/p aortic root enlargement (bovine pericardial patch, SN #[id number]) and surgical aortic valve replacement (#23 Gomez Inspiris Resilia SAVR, SN #[id number]), 08/25/[address] Frye.
-Preop LVEF 65%, postop hyperdynamic with an EF of 65-70%, initially coming off bypass she had some RV dysfunction that resolved with resting on bypass.
-Postop mean gradient 10 mmHg.
-Procedural anemia treated with 1 unit PRBC IntraOp and 2 bowls of Cell Saver.
-Upon chest closure, she had sudden ST changes and hypotension, pressure drove up with MAP of 70s which resulted in resolution of ST segment elevation which is likely consistent with a air in the right coronary ostium.
-Continue amiodarone, aspirin, ezetimibe, nicardipine, metoprolol and rosuvastatin.
-Encourage incentive spirometry.
-Pain, chest tube management per CT surgery.
#Hypertension
-Chronic, stable.
-BP currently stable, requiring nicardipine.
-We will restart losartan 50 mg when appropriate.
#Dyslipidemia
-Chronic, stable.
-Continue rosuvastatin 40 mg and ezetimibe 10mg.
#Prediabetes, HbA1c 5.9%
#Chronic migraines
Bottom Brusher: Dr. Nolan
Subjective/Interval History:
Nicardipine being titrated for SBP control, reducing SVR.
Weight up to 87.9 kg (baseline 82.1 kg).
PADP around 17-22 mmHg.
RAP around 13-15 mmHg.
SaO2 = 95% on 3LNC.
DATA:
Intraprocedural PETER, 08/25/2024:
CONCLUSIONS
Normal biventricular systolic function with no wall motion abnormalities. The
LVEF is 65-70% by visual inspection.
Trileaflet aortic valve with severely thickened and restricted leaflets.
Severe aortic stenosis. Moderate aortic insufficiency.
Trace to mild mitral regurgitation with mildly thickened anterior leaflet.
The tricuspid valve is normal.
Grade III atheromatous disease is seen in the arch and descending thoracic
aorta.
POST OPERATIVE FINDINGS
S/P AVR with size 23 bioprosthetic with aortic root enlargement
Transthoracic echocardiogram, 06/17/2024:
Normal left ventricular size with mild concentric remodeling and normal
systolic function. No regional wall motion abnormalities are seen. LV ejection
fraction is 65-70% by Mcmahon's method of discs. Stage I diastolic dysfunction
suggestive of abnormal relaxation.
Normal right ventricular size and function.
Normal atria.
Mildly thickened mitral valve leaflets with calcification of the anterior mitral leaflet tip.
Thickened aortic valve with restricted leaflet motion, severe aortic stenosis and moderate insufficiency.
No evidence of pulmonary hypertension.
Coronary angiography, 07/24/2024:
Dominance: right
LM: normal
LAD: large vessel giving rise to a large D1 and wrapping around the apex. No CAD.
LCx: large vessel giving rise to a small OM1/ramus, large OM2, and moderate-caliber OM3. No CAD.
RCA: large vessel giving rise to a medium caliber RPDA and several small RPL branches. No CAD.
Physical Exam
Vital Signs/Labs
Vital Signs
Temp Pulse Resp BP Pulse Ox
37.0 C 83 20 123/52 95
08/26/24 07:00 08/26/24 07:00 08/26/24 07:00 08/26/24 07:00 08/26/24 07:00
08/24/24 08/25/24 08/26/24
11:59 11:59 11:59
Actual Weight 82.1 kg 87.9 kg
08/26/24 04:15
08/26/24 04:15
PT 18.9 Sec (11.4-14.6) H 08/25/24 12:17
INR 1.60 08/25/24 12:17
APTT 43.8 Sec (23.4-35.0) H 08/25/24 12:17
Magnesium 2.3 mg/dl (1.6-2.3) 08/26/24 04:15
Physical Exam
Constitutional: No acute distress and Comfortable
EENT: Anicteric and Moist mucous membranes
Cardiovascular: Rhythm & rate is regular, Pedal edema is absent, JVD pressure is normal, S1S2 is normal and Murmur/rub/gallop absent
Respiratory: Respiratory effort normal, Lungs clear to auscul., Wheeze Absent, Crackles Absent and Rhonchi Absent
GI: Soft, Distention absent, Flat, Non tender and Normal bowel sounds
Neuro/Psych: AO x 3
Data Reviewed
-
Date of Service: August 26, 2024
Medical Decision Making: Reviewed Test Results, Independent Historian Assessment, Test Interpretation and Review of Case with other Provider
EKG: Tracing Personally Visualized and interpreted and Report Reviewed by me
Echo: Report Reviewed by me
X-Ray/CT/US/MRI/NUC/PET: Image Personally Visualized and interpreted and Report Reviewed by me
Medical Tests (PFT, Pathology etc): Report Reviewed by me
Labs: Labs Reviewed by me
Old Records: Reviewed
--- NOTE | 2024-08-26 07:38 | W.PN.ANS.POP ---
Anesthesia Post Operative
- Anesthesia Post Op Note
Vital Signs Stable-See Nursing Note: Yes (remains on cardene gtt)
Airway Patent: Yes
Adequate Pain Control: Yes
Change in Mental Status: No
Current Postoperative Nausea & Vomiting: No
Anesthesia Complications: No
General Anesthetic Recall: No
Unplanned Admission: No
Post Op Hydration Adequate: Yes
[2024-08-26] MEDS: BACTROBAN 2% OINTMENT 1 APPLIC NASAL ×2 (07:49→20:07)
[2024-08-26] MEDS: LOPRESSOR 12.5 MG PO ×2 (07:50→20:06)
[2024-08-26] MEDS: LOW STRENGTH ASPIRIN 81 MG PO (07:51)
[2024-08-26] MEDS: MAGNESIUM OXIDE 500 MG PO ×2 (07:51→20:06)
[2024-08-26] MEDS: MUCINEX 600 MG PO ×2 (07:52→20:06)
[2024-08-26] MEDS: PACERONE 200 MG PO ×3 (07:54→22:34)
[2024-08-26] MEDS: NEURONTIN 100 MG PO ×3 (07:54→22:34)
[2024-08-26] MEDS: SENOKOT-S 1 TABLET PO ×2 (07:54→20:06)
[2024-08-26] MEDS: PROTONIX 40 MG PO (07:54)
[2024-08-26] MEDS: ROXICODONE 5 MG PO (07:55)
--- NOTE | 2024-08-26 08:00 | PTCARENOTE ---
Received pt from [facility], walking rounds completed. Pt in bed for nursing assessment. Pt drowsy but oriented x4, no neuro deficits noted. NSR on monitor. V-Wires 50-6-3, no pacer spike noted on monitor. B/P: 123/52, HR: 83, pulses palpable
throughout, generalized edema throughout. Pt on 3L, POX: 96%-97%, lungs diminished, I/S: 1000, Mediastinal C/T x2, suction -20, no tidaling, air leak, or crepitus noted. C/T draining serosanguineous fluid WNL, C/T dressing C/D/I. BS normal,
abdomen soft, non-tender. Woods intact, clear, yellow urine. Sternal incision approx, surgical glue present, no redness or edema noted around incision. IJ cordis, [place] @ 42cm. Left a-line, intact, no redness or edema noted. Plan of care discussed
with pt, pt agrees with plan.
--- NOTE | 2024-08-26 08:00 | PTCARENOTE ---
Received pt from [facility], walking rounds completed. Pt in bed for nursing assessment. Pt drowsy but oriented x4, no neuro deficits noted. NSR on monitor. V-Wires 50-6-3, no pacer spike noted on monitor. Sternal rub on auscultation. B/P: 123/52,
HR: 83, pulses palpable throughout, generalized edema throughout. Pt on 3L, POX: 96%-97%, lungs diminished, I/S: 1000, Medial sternal C/T x2, suction -20, no tidaling, air leak, or crepitus noted. C/T draining serosanguineous fluid WNL, C/T
dressing C/D/I. BS normal, abdomen soft, non-tender. Woods intact, clear, yellow urine. Sternal incision approx, surgical glue present, no redness or edema noted around incision. IJ cordis, [place] @ 42cm. Left a-line, intact, no redness or edema
noted. Plan of care discussed with pt, pt agrees with plan.
[2024-08-26] MEDS: MIRALAX PO (08:10)
--- NOTE | 2024-08-26 08:30 | PTCARENOTE ---
VSS, Pt in NSR on monitor. Pt delined,V-wires insulated. C/T dressing changed. Woods d/c'ed, pt tolerated. Pt OOB to chair.
[2024-08-26 08:40] LABS: Glucose - Point of Care 137 mg/dl (70-99)
--- NOTE | 2024-08-26 08:40 | W.PN.INTV ---
Today's Communication / Plan
Recommendations
Up OOB as tolerated
Maintain SpO2 >90-94%
Encourage incentive spirometer use
Cardiac rehab consult
Patient is now CVICU�telemetry status. Paste Mixing Supervisor/Pulmonary service will now sign off. Please reconsult if there are any additional questions/concerns, or if patient's respiratory status deteriorates.
Assessment
-
Assessment: 63-year-old female non-smoker with a past medical history of severe aortic stenosis, arthritis, hypercholesterolemia, hypertension and migraine headaches who presents with elective SAVR. Patient known to cardiothoracic surgery with
[facility] with last office visit on 07/31/2024. Patient has history of nonrheumatic aortic valve stenosis which has progressed. Per recent echo in June 2024, her peak/mean gradient was 77/49 mmHg, respectively. Her CHAR reached threshold for severe
stenosis at 0.7. LHC performed on 07/24/2024 shows normal coronary arteries and a right dominant system. Patient does endorse SOB when walking on incline with chest heaviness and intermittent lightheadedness and bendopnea. She says that her
functional status has declined especially when out in the heat. Surgical aortic valve replacement was discussed including its risks and benefits. On 08/25/2024, she underwent a SAVR without any immediate complications and was transferred to the
CVICU postoperatively. Paste Mixing Supervisor services consulted for additional management/recommendations.
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
Impression:
#Severe aortic stenosis with moderate insufficiency s/p SAVR (POD #1)
#Aortic root enlargement
#Acute anemia
#Acute thrombocytopenia
#Hypertension
#Hypercholesterolemia
#Migraine headaches
#Snoring
Plan:
Patient was extubated yesterday to nasal cannula and is currently saturating 100% on 6 L/min
prn nebulized bronchodilators � patient currently not bronchospastic
Maintain MAP>65
Replete electrolytes with K>4, Mg>2
Monitor chest tube output (mediastinal chest tubes x 2)
Monitor hemoglobin
Monitor platelet count and coags
Transfuse blood products as needed to maintain Hb>7g/dL, plt>50k (given post-operative status)
CT surgery managing chest tubes
Monitor blood sugar to maintain euglycemia with goal BG 140-180
Insulin drip has now been weaned off - continue insulin SQ supplementation to keep BG at goal as above
Aspiration precautions
DVT prophylaxis
Early nutrition
Early mobilization
Patient is now CVICU�telemetry status. Paste Mixing Supervisor/Pulmonary service will now sign off. Thank you for allowing us to be involved in the care of this patient. Please reconsult if there are any additional questions/concerns, or if patient's
respiratory status deteriorates.
Data:
CXR 08/25/2024: Support apparatus in position; No pneumothorax.
CXR 08/26/2024: No active pulmonary process. Interval extubation. Otherwise, unchanged support devices.
Total time spent today was 55 minutes for this encounter. Time includes reviewing laboratory test/imaging results, reviewing pertinent medical records, obtaining and reviewing medical history, performing an appropriate exam, ordering medications,
tests and procedures. Time also includes documentation of this encounter, coordinating patient care and communicating with other healthcare professionals. Total time does not include separately billed tests performed on this date of service.
Subjective Dataa
Subjective Data
Date of Service:
Date of Service: August 26, 2024
Chief Complaint: Paste Mixing Supervisor Follow Up
Subjective:
Patient was seen and evaluated this morning. She is very tired today. Currently on room air, saturating 95%, BP 101/42 and heart rate 79. Mediastinal chest tubes x [address]. She denies chest pain, SOB, SHIN, abdominal pain, fevers or chills.
Review of Systems
General: Other (Negative unless mentioned above)
Objective Data
Data Reviewed
Vital Signs / I&O / Oxygen:
Vital Signs
Temp Pulse Resp BP Pulse Ox
98.5 F 72 14 91/49 95
08/26/24 08:00 08/26/24 09:31 08/26/24 08:38 08/26/24 09:31 08/26/24 09:31
Intake and Output
08/25/24 08/26/24 08/27/24
06:59 06:59 06:59
Intake Total 1285.0 / 1375.8 429.6 / 429.6
Output Total 1215 / 1215 75 / 75
Balance 70.0 / 160.8 354.6 / 354.6
SaO2 [CPAP/PSV] 100
SaO2 [SIMV] 99
SaO2 95
Nasal Cannula flow liters per 2
minute
Physical Exam
General: Respiratory Distress (negative), Comfortable, Chills (negative) and Sweats (negative)
HEENT: Normocephalic and Anicteric
Cardiovascular: S1-S2, Murmur (DANYELL heard in anterior precordium) and Peripheral Edema (negative)
Respiratory: Wheeze (negative), Crackles (negative), Rhonchi (negative) and Non-Labored Respirations
GI: Soft, Non Distended, Non Tender and Normal Bowel Sounds
Neurology: Tremors (negative) and Lethargic (Easily arousable and answering questions appropriately)
Skin: Warm, Dry, Cyanosis (negative) and Jaundice (negative)
Labs/Micro/Reports
Lab Data
08/26/24 04:15
08/26/24 04:15
Laboratory Results
08/25/24 08/25/24 08/25/24
12:17 15:39 17:42
PT 18.9 H
INR 1.60
APTT 43.8 H
pH 7.38 7.30 L 7.35
pCO2 34 43 H 45 H
pO2 154 H 163 H 166 H
HCO3 20.1 L 21.2 24.8
O2 Delivery Level Not Reportable
08/25/24
19:53
PT
INR
APTT
pH 7.39
pCO2 40 H
pO2 145 H
HCO3 24.2
O2 Delivery Level
[2024-08-26] MEDS: NOVOLOG FLEXPEN 4 UNITS SC (09:03)
[2024-08-26] MEDS: NSS IV (09:26)
[2024-08-26 11:14] LABS: Glucose - Point of Care 125 mg/dl (70-99)
[2024-08-26] MEDS: TORADOL 15 MG IV (11:21)
[2024-08-26] MEDS: ZOFRAN 4 MG IV (11:22)
--- NOTE | 2024-08-26 11:47 | CM ---
Chart reviewed. Patient is OOB sitting in the chair. is at bedside. Patient is independent of ADLS, lives with her in a 1 STH, 1 SOFIYA, 0 DME. Plan is for the patient to return home with CT Transitional RN. CM to follow
[2024-08-26 12:10] LABS: Glucose - Point of Care 111 mg/dl (70-99)
[2024-08-26] MEDS: NOVOLOG FLEXPEN SC (12:23)
--- NOTE | 2024-08-26 12:26 | PTCARENOTE ---
VSS, NSR on monitor. Insulin gtt d/c'ed. C/t output WNL. Pt remains due to void. Cordis and PVA intact.
[2024-08-26] MEDS: FERRLECIT 110 MG IV (14:05)
[2024-08-26 15:14] LABS: Mixed Venous O2 Saturation 57.4 %
--- NOTE | 2024-08-26 15:35 | PTCARENOTE ---
VSS. NSR on monitor. Bladder scanned pt for 33ml. CT MARKETING AUTOMATION MANAGER, Luz Maria notified. Mixed venous drawn 57.4. Albumin ordered. Assessment unchanged from prior.
[2024-08-26 15:55] LABS: Blood Urea Nitrogen 24 mg/dl (7-17); Calcium 8.2 mg/dl (8.4-10.2); Carbon Dioxide 20 mmol/L (22-30); Chloride 99 mmol/L (98-107); Estimated Creatinine Clearance 54 ml/min; Glucose 211 mg/dl (70-99); Potassium 4.7 mmol/L (3.5-5.1); Sodium 130 mmol/L (135-145)
[2024-08-26] MEDS: ALBUMIN 5% 250 IV (15:55)
[2024-08-26 16:24] LABS: B.E. -3.1 mmol/L; HCO3 21.1 mmol/L (21-28); Ionized Calcium 1.09 mMOL/L (1.15-1.33); O2 Saturation % 95.8 % (94-98); PCO2 34 mmHg (32-35); PO2 66 mmHg (83-108); Potassium 4.4 mMOL/L (3.5-5.1); Sodium 128 mMOL/L (136-145)
[2024-08-26 17:00] LABS: Glucose - Point of Care 194 mg/dl (70-99)
[2024-08-26] MEDS: FLEXBUMIN 100 IV (17:03)
[2024-08-26] MEDS: CALCIUM CHLORIDE 10% SYRINGE 60 MG IV (17:03)
[2024-08-26] MEDS: NOVOLOG FLEXPEN-MODERATE RESISTANCE 1 UNITS SC (17:04)
[2024-08-26] MEDS: CRESTOR 40 MG PO (17:16)
[2024-08-26] MEDS: ZETIA 10 MG PO (17:16)
[2024-08-26] MEDS: SODIUM BICARBONATE 50 MEQ IV (17:28)
--- NOTE | 2024-08-26 20:20 | PTCARENOTE ---
Assumed pt care. Pt resting in bed at time of assessment. AAO x 4, reports mild sternal pain with inspiration. POX 95%, posterior BS clear/diminished in bases, infrequent non-productive cough, IS performed to 500, denies SOB. MS CT x 2 present &
connected to -20 cm H2O suction, no air leak/crepitus. NSR on monitor, V-wires insulated, heart tones normal, pulses palpable, mild B/L LE present. BS hypoactive, pt belching, denies n/v, poor appetite. Pt due to void, bladder scanned for ~200 mL at
1915. Procedural sites CDI. RIJ Cordis maintained with KVO. PIV x 1 present & patent. See MAR. Pt brushed teeth & washed face independently, positioned for comfort. VSS.
--- NOTE | 2024-08-26 23:52 | PTCARENOTE ---
Pt remains resting comfortably in bed. VSS. Pt remains due to void - bladder scanned for 300 mL. Pt reports not having sensation to urinate. No other changes.
[2024-08-27] VITALS (19 sets, daily range): BP systolic 106–146; BP diastolic 45–84; PULSE 71; O2SAT 93–95; BMI 33.0
[2024-08-27] MEDS: FLEXBUMIN 100 IV ×2 (02:46→08:19)
--- NOTE | 2024-08-27 03:14 | PTCARENOTE ---
Pt assisted to BSC - voided 300 mL dark/megan urine. Weight obtained on standing scale. Pt assisted into bed. VS obtained. Labs drawn & sent. No other changes.
--- NOTE | 2024-08-27 03:29 | W.PN.CT ---
Today's Communication / Plan
-
-pod #2
-no issues overnight
-hypotension much improved after getting Calcium, bicarb, and 5% and 25% Albumin on 08/26
-no significant urine amount on follow-up bladder scans past 24 hrs - voided 300 cc this am
-CT output: 2 meds 180/320 output in 12/24 hrs
-follow Cr - 1.0 today (1.2 on 08/26 and 0.8 preop)
-consider diuresis when able to tolerate
-encourage IS, OOB, ambulate
Assessment / Plan
-
- Severe aortic valve stenosis, with moderate degree of aortic valve insufficiency, appeared either rheumatic or congenital with very thickened leaflets
-s/p Surgical aortic valve replacement [23 mm Inspiris Resilia bioprosthesis] and Aortic root enlargement [Manouguian] with bovine pericardial patch on 08/25/[address] Frye, pod #2
- Intraop PETER: LVEF preop was 65% with no significant regional wma. Following surgery she was slightly hyperdynamic with an EF of 65 to 70% with no new regional wma. Initially coming off of cardiopulmonary bypass she had some RV dysfunction that
resolved with resting on cardiopulmonary bypass. The mean gradient across her new bioprosthesis was 10 mmHg.
- Acute intraop transient ST segment elevation with hypotension, likely consistent with air into the right coronary ostium- resolved
- Hypertension
- Hyperlipidemia
- Class 1 obesity, BMI 30
- Migraines
- Chronic diastolic dysfunction with mild to moderate degree of hypertrophic left ventricle
- Mild mitral valve insufficiency
- Non-smoker
- Acute postop blood loss anemia - stable, s/p 2 pRBCs and 2 cell saver in OR
- Acute postop thrombocytopenia
- Acute postop atelectasis
- Acute postop hypovolemia with subsequent hypervolemia
- JUSTO-improving
- Acute postop hyponatremia
Discussed patient care with: Nursing and Care Team
Subjective
Procedure
-s/p Surgical aortic valve replacement [23 mm Inspiris Resilia bioprosthesis] and Aortic root enlargement [Manouguian] on 08/25/[address] Frye
-
Date of Service: August 27, 2024
Objective Data
-
PT 18.9 Sec (11.4-14.6) H 08/25/24 12:17
INR 1.60 08/25/24 12:17
APTT 43.8 Sec (23.4-35.0) H 08/25/24 12:17
Vital Signs
Vital Signs
Temp Pulse Resp BP Pulse Ox
98.6 F 76 16 119/56 95
08/27/24 03:00 08/27/24 03:02 08/27/24 03:00 08/27/24 03:02 08/27/24 03:00
CT Intake/Output/Weight
08/26/24 08/26/24 08/27/24
06:59 18:59 06:59
Intake Total 696.5 / 1375.8 1017.8 / 1197.8 180 / 1197.8
Output Total 470 / 1215 175 / 655 480 / 655
Balance 226.5 / 160.8 842.8 / 542.8 -300 / 542.8
SaO2: 95
[2024-08-27 03:33] LABS: Hematocrit 28.9 % (37.0-47.0); Hemoglobin 9.8 g/dL (12.0-16.0); Mean Corp Hgb Conc. 33.9 g/dL (33.0-37.0); Mean Corpuscular Hgb 29.1 pg (27.0-31.0); Mean Corpuscular Volume 85.8 fL (81.0-99.0); Mean Platelet Volume 11.1 fL (7.4-10.4); Platelet Count 101 10^3/uL (130-400); Red Blood Cell Count 3.37 10^6/uL (4.20-5.40); Red Cell Dist. Width 13.5 % (11.5-14.5); White Blood Cell Count 19.3 10^3/uL (4.8-10.8)
[2024-08-27 03:53] LABS: Blood Urea Nitrogen 27 mg/dl (7-17); Calcium 8.8 mg/dl (8.4-10.2); Carbon Dioxide 21 mmol/L (22-30); Chloride 97 mmol/L (98-107); Estimated Creatinine Clearance 65 ml/min; Glucose 152 mg/dl (70-99); Magnesium 2.5 mg/dl (1.6-2.3); Potassium 5.1 mmol/L (3.5-5.1); Sodium 132 mmol/L (135-145); eGFR > 60.00
[2024-08-27] MEDS: TYLENOL 1000 MG PO ×3 (06:22→23:22)
--- NOTE | 2024-08-27 07:20 | W.PN.CD ---
Today's Communication / Plan
-
Incentive spirometry.
Ambulate.
Furosemide IV x1 and monitor.
Chest tube/pain management per CTS.
Impression / Plan
-
Impression/Plan: 63F with hypertension, dyslipidemia, and severe aortic stenosis admitted for elective SAVR.
#Severe aortic stenosis
-Chronic.
-s/p aortic root enlargement (bovine pericardial patch, SN #[id number]) and surgical aortic valve replacement (#23 Gomez Inspiris Resilia SAVR, SN #[id number]), 08/25/[address] Frye.
-Preop LVEF 65%, postop hyperdynamic with an EF of 65-70%, initially coming off bypass she had some RV dysfunction that resolved with resting on bypass.
-Postop mean gradient 10 mmHg.
-Procedural anemia treated with 1 unit PRBC IntraOp and 2 bowls of Cell Saver.
-Upon chest closure, she had sudden ST changes and hypotension, pressure drove up with MAP of 70s which resulted in resolution of ST segment elevation which is likely consistent with a air in the right coronary ostium.
-Continue amiodarone, aspirin, ezetimibe, nicardipine, metoprolol and rosuvastatin.
-Encourage incentive spirometry.
-Pain, chest tube management per CT surgery.
-Her weight is up, Hbg down, suggesting that she is recruiting her third spacing volume. Time to start diuresing. Furosemide IV x1 and monitor hemodynamic response.
#Hypertension
-Chronic, stable.
-BP currently stable, requiring nicardipine.
-We will restart losartan 50 mg when appropriate.
#Dyslipidemia
-Chronic, stable.
-Continue rosuvastatin 40 mg and ezetimibe 10mg.
#Prediabetes, HbA1c 5.9%
#Chronic migraines
Fish Egg Packer: Dr. Nolan
Subjective/Interval History:
Weight up to 89.9 kg (up 3 kg from yesterday).
Hbg down to 9.8 (<-- 11.5 <-- 13.6).
DATA:
Intraprocedural PETER, 08/25/2024:
CONCLUSIONS
Normal biventricular systolic function with no wall motion abnormalities. The
LVEF is 65-70% by visual inspection.
Trileaflet aortic valve with severely thickened and restricted leaflets.
Severe aortic stenosis. Moderate aortic insufficiency.
Trace to mild mitral regurgitation with mildly thickened anterior leaflet.
The tricuspid valve is normal.
Grade III atheromatous disease is seen in the arch and descending thoracic
aorta.
POST OPERATIVE FINDINGS
S/P AVR with size 23 bioprosthetic with aortic root enlargement
Transthoracic echocardiogram, 06/17/2024:
Normal left ventricular size with mild concentric remodeling and normal
systolic function. No regional wall motion abnormalities are seen. LV ejection
fraction is 65-70% by Mcmahon's method of discs. Stage I diastolic dysfunction
suggestive of abnormal relaxation.
Normal right ventricular size and function.
Normal atria.
Mildly thickened mitral valve leaflets with calcification of the anterior mitral leaflet tip.
Thickened aortic valve with restricted leaflet motion, severe aortic stenosis and moderate insufficiency.
No evidence of pulmonary hypertension.
Coronary angiography, 07/24/2024:
Dominance: right
LM: normal
LAD: large vessel giving rise to a large D1 and wrapping around the apex. No CAD.
LCx: large vessel giving rise to a small OM1/ramus, large OM2, and moderate-caliber OM3. No CAD.
RCA: large vessel giving rise to a medium caliber RPDA and several small RPL branches. No CAD.
Physical Exam
Vital Signs/Labs
Vital Signs
Temp Pulse Resp BP Pulse Ox
37.0 C 73 16 119/56 95
08/27/24 03:00 08/27/24 07:00 08/27/24 03:00 08/27/24 03:02 08/27/24 03:37
08/25/24 08/26/24 08/27/24
11:59 11:59 11:59
Actual Weight 82.1 kg 86.9 kg 89.9 kg
08/27/24 02:59
08/27/24 02:59
PT 18.9 Sec (11.4-14.6) H 08/25/24 12:17
INR 1.60 08/25/24 12:17
APTT 43.8 Sec (23.4-35.0) H 08/25/24 12:17
Magnesium 2.5 mg/dl (1.6-2.3) H 08/27/24 02:59
Physical Exam
Constitutional: No acute distress and Comfortable
EENT: Anicteric and Moist mucous membranes
Cardiovascular: Rhythm & rate is regular, Pedal edema is absent, JVD pressure is normal, S1S2 is normal and Murmur/rub/gallop absent
Respiratory: Respiratory effort normal, Lungs clear to auscul., Wheeze Absent, Crackles Absent and Rhonchi Absent
GI: Soft, Distention absent, Flat, Non tender and Normal bowel sounds
Neuro/Psych: AO x 3
Data Reviewed
-
Date of Service: August 27, 2024
Medical Decision Making: Reviewed Test Results, Independent Historian Assessment and Test Interpretation
EKG: Tracing Personally Visualized and interpreted and Report Reviewed by me
Echo: Report Reviewed by me
X-Ray/CT/US/MRI/NUC/PET: Image Personally Visualized and interpreted and Report Reviewed by me
Medical Tests (PFT, Pathology etc): Report Reviewed by me
Labs: Labs Reviewed by me
Old Records: Reviewed
--- NOTE | 2024-08-27 08:00 | PTCARENOTE ---
pt received from previous RN, oriented, OOB in chair. SR on the monitor, HR 70s. V wire insulated. SBP 140s. palpable pulses, +1 generalized edema. pt on RA, 93% POX, lungs diminished in bases. IS encouraged. CT x2, no air leak or crepitus noted. pt
abdomen s/n, denies n/v. +BS. denies n/v. diet tolerated well. sternal incision G[place], approximated. chest tube site c/d/i. RIJ Cordis maintained. PIV. see worklist for VS, I&O, and assessment.
[2024-08-27 08:13] LABS: Glucose - Point of Care 150 mg/dl (70-99)
[2024-08-27] MEDS: PACERONE 200 MG PO ×3 (08:16→23:22)
[2024-08-27] MEDS: SENOKOT-S 1 TABLET PO (08:16)
[2024-08-27] MEDS: PROTONIX 40 MG PO (08:16)
[2024-08-27] MEDS: MUCINEX 600 MG PO ×2 (08:16→20:22)
[2024-08-27] MEDS: LOW STRENGTH ASPIRIN 81 MG PO (08:16)
[2024-08-27] MEDS: NEURONTIN 100 MG PO ×3 (08:16→23:22)
[2024-08-27] MEDS: MAGNESIUM OXIDE 500 MG PO ×2 (08:16→20:22)
[2024-08-27] MEDS: LOPRESSOR 12.5 MG PO ×2 (08:16→20:22)
[2024-08-27] MEDS: MIRALAX 17 GRAMS PO (08:16)
[2024-08-27] MEDS: LASIX 20 MG IV (08:17)
[2024-08-27] MEDS: NOVOLOG FLEXPEN-MODERATE RESISTANCE 1 UNITS SC ×2 (08:20→12:15)
[2024-08-27] MEDS: BACTROBAN 2% OINTMENT 1 APPLIC NASAL ×2 (08:20→20:22)
[2024-08-27] MEDS: TORADOL 15 MG IV ×2 (09:32→17:41)
--- NOTE | 2024-08-27 11:14 | CM ---
Chart reviewed. Patient is independent of ADLS, lives with her in a 1 STH, 1 SOFIYA, 0 DME. Plan is for the patient to return home with CT Transitional RN. CM to follow
[2024-08-27 12:15] LABS: Glucose - Point of Care 161 mg/dl (70-99)
--- NOTE | 2024-08-27 12:30 | PTCARENOTE ---
pt VSS, no changes in assessment. OOB in chair for lunch. at bedside.
[2024-08-27] MEDS: FERRLECIT 110 MG IV (13:37)
--- NOTE | 2024-08-27 14:10 | PTCARENOTE ---
pt ambulated in hallway w/ stand by assist. voids on BSC. pt placed back to bed, COLLISION CENTER MANAGER pulled V wire, VS as ordered.
[2024-08-27] MEDS: NSS 500 IV (16:18)
--- NOTE | 2024-08-27 16:30 | PTCARENOTE ---
pt VSS, no changes in assessment. OOB to chair w/ minimal assist, no dumping from CTs. voiding in BSC.
[2024-08-27 17:07] LABS: Glucose - Point of Care 120 mg/dl (70-99)
[2024-08-27] MEDS: NOVOLOG FLEXPEN-MODERATE RESISTANCE SC (17:07)
[2024-08-27] MEDS: CRESTOR 40 MG PO (17:41)
[2024-08-27] MEDS: ZETIA 10 MG PO (17:41)
--- NOTE | 2024-08-27 18:01 | PTCARENOTE ---
WOODS WARDEN aware of CT output, pt placed back to bed. Med CTx2 dc'd as ordered, dressing c/d/i.
[2024-08-27] MEDS: SENOKOT-S PO (20:22)
--- NOTE | 2024-08-27 20:41 | PTCARENOTE ---
Assumed pt care. Pt AAO x 4, denies pain at time of assessment. RA, POX 95%, intermittent non-productive cough. IS & CDB encouraged, BS diminished in B/L bases, denies CONTRERAS. Pt in NSR on monitor, heart tone normal, generalized anasarca, +1 edema in
b/l LE, pulses palpable B/L. Stand-by assistance for repositioning, ambulated to bathoom, tolerating activity. BS audible, BM x 1 in bathroom. Voiding without issue. Procedural sites intact. CT dressings CDI. RIJ cordis maintained with KVO. PIV x 1
present & patent. See JAN.
[2024-08-27 20:46] LABS: Hepatitis C Antibody Negative (Negative)
--- NOTE | 2024-08-27 23:41 | PTCARENOTE ---
VS obtained. Pt assisted into bathroom, voided x 1. Reports R shoulder pain, warm compress applied, PRN pain management discussed. No other changes.
[2024-08-28] VITALS (10 sets, daily range): BP systolic 105–153; BP diastolic 44–88; PULSE 68; O2SAT 95–96; BMI 33.1
[2024-08-28] MEDS: TORADOL 15 MG IV (02:48)
[2024-08-28 03:29] LABS: Hematocrit 25.7 % (37.0-47.0); Hemoglobin 8.9 g/dL (12.0-16.0); Mean Corp Hgb Conc. 34.6 g/dL (33.0-37.0); Mean Corpuscular Hgb 29.2 pg (27.0-31.0); Mean Corpuscular Volume 84.3 fL (81.0-99.0); Red Blood Cell Count 3.05 10^6/uL (4.20-5.40); Red Cell Dist. Width 13.2 % (11.5-14.5); White Blood Cell Count 17.4 10^3/uL (4.8-10.8)
--- NOTE | 2024-08-28 03:30 | W.PN.CT ---
Today's Communication / Plan
-
-pod #3
-no issues vovernight
-c/o swelling/heaviness in her legs
-wt is up 18 lbs from preop- consider bid Lasix
-weaned off O2- pOx 92-95% on RA
-labs pending
-encourage IS, OOB
Assessment / Plan
-
- Severe aortic valve stenosis, with moderate degree of aortic valve insufficiency, appeared either rheumatic or congenital with very thickened leaflets
-s/p Surgical aortic valve replacement [23 mm Inspiris Resilia bioprosthesis] and Aortic root enlargement [facility]] with bovine pericardial patch on 08/25/[address] Frye, pod #3
- Intraop PETER: LVEF preop was 65% with no significant regional wma. Following surgery she was slightly hyperdynamic with an EF of 65 to 70% with no new regional wma. Initially coming off of cardiopulmonary bypass she had some RV dysfunction that
resolved with resting on cardiopulmonary bypass. The mean gradient across her new bioprosthesis was 10 mmHg.
- Acute intraop transient ST segment elevation with hypotension, likely consistent with air into the right coronary ostium- resolved
- Hypertension
- Hyperlipidemia
- Class 1 obesity, BMI 30
- Migraines
- Chronic diastolic dysfunction with mild to moderate degree of hypertrophic left ventricle
- Mild mitral valve insufficiency
- Non-smoker
- Acute postop blood loss anemia - stable, s/p 2 pRBCs and 2 cell saver in OR
- Acute postop thrombocytopenia
- Acute postop atelectasis
- Acute postop hypovolemia with subsequent hypervolemia
- JUSTO-improving
- Acute postop hyponatremia
Discussed patient care with: Nursing and Care Team
Subjective
Procedure
-s/p Surgical aortic valve replacement [23 mm Inspiris Resilia bioprosthesis] and Aortic root enlargement [Manouguian] on 08/25/[address] Frye
-
Date of Service: August 28, 2024
Objective Data
-
PT 18.9 Sec (11.4-14.6) H 08/25/24 12:17
INR 1.60 08/25/24 12:17
APTT 43.8 Sec (23.4-35.0) H 08/25/24 12:17
Vital Signs
Vital Signs
Temp Pulse Resp BP Pulse Ox
98.1 F 71 18 128/56 94
08/28/24 03:16 08/28/24 03:15 08/28/24 03:16 08/28/24 03:15 08/28/24 03:16
CT Intake/Output/Weight
08/27/24 08/27/24 08/28/24
06:59 18:59 06:59
Intake Total 210 / 1227.8 260 / 720 460 / 720
Output Total 580 / 755 770 / 770
Balance -370 / 472.8 -510 / -50 460 / -50
SaO2: 94
Physical Exam
-
General: Awake and AOx3
Cardiovascular: Regular rate & rhythm, No Murmurs and No Rub
Respiratory: Rales (at bases. No wheeze) and Decreased Breath Sounds
Sternum: Stable
Incision: Clean, Dry and Dressing Intact
Extremities: Edema +2
Abdomen: soft, nondistended, nontender, no nausea
Data Reviewed
-
Lab Results: Results Reviewed
Medications: Active Meds Reviewed
Chest X-Ray: Report Reviewed and Image Reviewed
ECG: Report Reviewed and Image Reviewed
[2024-08-28 03:35] LABS: Blood Urea Nitrogen 29 mg/dl (7-17); Calcium 8.1 mg/dl (8.4-10.2); Carbon Dioxide 23 mmol/L (22-30); Chloride 96 mmol/L (98-107); Estimated Creatinine Clearance 82 ml/min; Glucose 113 mg/dl (70-99); Magnesium 2.7 mg/dl (1.6-2.3); Potassium 4.3 mmol/L (3.5-5.1); Sodium 131 mmol/L (135-145); eGFR > 60.00
[2024-08-28 04:00] LABS: Mean Platelet Volume 11.7 fL (7.4-10.4); Platelet Count 83 10^3/uL (130-400)
[2024-08-28] MEDS: TYLENOL 1000 MG PO ×3 (05:24→21:53)
--- NOTE | 2024-08-28 06:55 | W.PN.CD ---
Today's Communication / Plan
-
Furosemide 40 mg IV this morning.
If she does not respond to 40 mg, please give furosemide 80 mg IV this afternoon.
If she does not respond to 80 mg, consider bumetanide gtt or thiazide augmentation.
Ambulate.
Incentive spirometry.
Impression / Plan
-
Impression/Plan: 63F with hypertension, dyslipidemia, and severe aortic stenosis admitted for elective SAVR.
#Severe aortic stenosis
-Chronic.
-s/p aortic root enlargement (bovine pericardial patch, SN #[id number]) and surgical aortic valve replacement (#23 Gomez Inspiris Resilia SAVR, SN #[id number]), 08/25/[address] Frye.
-Preop LVEF 65%, postop hyperdynamic with an EF of 65-70%, initially coming off bypass she had some RV dysfunction that resolved with resting on bypass.
-Postop mean gradient 10 mmHg.
-Procedural anemia treated with 1 unit PRBC IntraOp and 2 bowls of Cell Saver.
-Upon chest closure, she had sudden ST changes and hypotension, pressure drove up with MAP of 70s which resulted in resolution of ST segment elevation which is likely consistent with a air in the right coronary ostium.
-Continue amiodarone, aspirin, ezetimibe, nicardipine, metoprolol and rosuvastatin.
-Encourage incentive spirometry.
-Pain, chest tube management per CT surgery.
-No response to furosemide 20 mg IV yesterday. Give furosemide 40 mg IV this morning. If she responds, continue at this dose. If she does not response to 40 mg, please given furosemide 80 mg IV this afternoon. If she does not respond to 80 mg,
consider bumetanide gtt or thiazide augmentation.
#Hypertension
-Chronic, stable.
-BP currently stable.
-We will restart losartan 50 mg when appropriate.
#Dyslipidemia
-Chronic, stable.
-Continue rosuvastatin 40 mg and ezetimibe 10mg.
#Prediabetes, HbA1c 5.9%
#Chronic migraines
Sliver Lap Tender: Dr. Nolan
Subjective/Interval History:
Weight up to 90.3 kg (up 0.4 kg from yesterday).
Reports that her legs feel heavy.
Hbg has fallen to 8.9.
DATA:
Intraprocedural PETER, 08/25/2024:
CONCLUSIONS
Normal biventricular systolic function with no wall motion abnormalities. The
LVEF is 65-70% by visual inspection.
Trileaflet aortic valve with severely thickened and restricted leaflets.
Severe aortic stenosis. Moderate aortic insufficiency.
Trace to mild mitral regurgitation with mildly thickened anterior leaflet.
The tricuspid valve is normal.
Grade III atheromatous disease is seen in the arch and descending thoracic
aorta.
POST OPERATIVE FINDINGS
S/P AVR with size 23 bioprosthetic with aortic root enlargement
Transthoracic echocardiogram, 06/17/2024:
Normal left ventricular size with mild concentric remodeling and normal
systolic function. No regional wall motion abnormalities are seen. LV ejection
fraction is 65-70% by Mcmahon's method of discs. Stage I diastolic dysfunction
suggestive of abnormal relaxation.
Normal right ventricular size and function.
Normal atria.
Mildly thickened mitral valve leaflets with calcification of the anterior mitral leaflet tip.
Thickened aortic valve with restricted leaflet motion, severe aortic stenosis and moderate insufficiency.
No evidence of pulmonary hypertension.
Coronary angiography, 07/24/2024:
Dominance: right
LM: normal
LAD: large vessel giving rise to a large D1 and wrapping around the apex. No CAD.
LCx: large vessel giving rise to a small OM1/ramus, large OM2, and moderate-caliber OM3. No CAD.
RCA: large vessel giving rise to a medium caliber RPDA and several small RPL branches. No CAD.
Physical Exam
Vital Signs/Labs
Vital Signs
Temp Pulse Resp BP Pulse Ox
36.7 C 66 18 128/56 94
08/28/24 03:16 08/28/24 04:00 08/28/24 03:16 08/28/24 03:15 08/28/24 03:30
08/26/24 08/27/24 08/28/24
11:59 11:59 11:59
Actual Weight 86.9 kg 89.9 kg 90.3 kg
08/28/24 02:55
08/28/24 02:55
PT 18.9 Sec (11.4-14.6) H 08/25/24 12:17
INR 1.60 08/25/24 12:17
APTT 43.8 Sec (23.4-35.0) H 08/25/24 12:17
Magnesium 2.7 mg/dl (1.6-2.3) H 08/28/24 02:55
Physical Exam
Constitutional: No acute distress and Comfortable
EENT: Anicteric and Moist mucous membranes
Cardiovascular: Rhythm & rate is regular, Pedal edema present, S1S2 is normal and Murmur/rub/gallop absent
Respiratory: Respiratory effort normal, Wheeze Absent, Rhonchi Absent and Crackles Present (Bilateral bases.)
GI: Soft, Distention absent, Flat, Non tender and Normal bowel sounds
Neuro/Psych: AO x 3
Data Reviewed
-
Date of Service: August 28, 2024
Medical Decision Making: Reviewed Test Results, Independent Historian Assessment, Test Interpretation and Review of Case with other Provider
EKG: Tracing Personally Visualized and interpreted and Report Reviewed by me
Echo: Tracing Personally Visualized and interpreted and Report Reviewed by me
X-Ray/CT/US/MRI/NUC/PET: Image Personally Visualized and interpreted and Report Reviewed by me
Medical Tests (PFT, Pathology etc): Image Personally Visualized and interpreted and Report Reviewed by me
Labs: Labs Reviewed by me
Old Records: Reviewed
[2024-08-28 07:21] LABS: Glucose - Point of Care 99 mg/dl (70-99)
[2024-08-28] MEDS: NOVOLOG FLEXPEN-MODERATE RESISTANCE SC ×3 (07:22→18:00)
[2024-08-28] MEDS: LOW STRENGTH ASPIRIN 81 MG PO (08:23)
[2024-08-28] MEDS: LASIX 40 MG IV ×2 (08:23→16:24)
[2024-08-28] MEDS: PACERONE 200 MG PO ×3 (08:23→21:54)
[2024-08-28] MEDS: NEURONTIN 100 MG PO ×3 (08:23→21:54)
[2024-08-28] MEDS: LOPRESSOR 12.5 MG PO ×2 (08:23→20:36)
[2024-08-28] MEDS: PROTONIX 40 MG PO (08:25)
[2024-08-28] MEDS: MAGNESIUM OXIDE 500 MG PO ×2 (08:25→20:35)
[2024-08-28] MEDS: MUCINEX 600 MG PO ×2 (08:25→20:34)
[2024-08-28] MEDS: MIRALAX PO (08:28)
[2024-08-28] MEDS: SENOKOT-S PO ×2 (08:28→20:35)
[2024-08-28] MEDS: BACTROBAN 2% OINTMENT 1 APPLIC NASAL ×2 (08:29→20:42)
[2024-08-28] MEDS: CALCIUM CHLORIDE 10% SYRINGE 60 MG IV (08:31)
--- NOTE | 2024-08-28 09:14 | PTCARENOTE ---
received pt from overnight babysitter nurse, pt AAOx3, NSR per tele, palpable pulses, HR 70s, generalized anasarca, B/L LE edema, pox 94% on RA, lungs diminished crackles at the bases, coughing and deep breathing encouraged, +bs, voids, post op surgical
sites in tact, RIJ cordis infusing KVO, PIV intact, plan of care discussed questions encouraged
[2024-08-28 12:02] LABS: Glucose - Point of Care 124 mg/dl (70-99)
--- NOTE | 2024-08-28 12:33 | PTCARENOTE ---
VSS, NSR per court monitor, pt resting comfortably in chair, assessment remains unchanged
[2024-08-28] MEDS: FERRLECIT 110 MG IV (14:05)
[2024-08-28] MEDS: NSS 500 IV (14:06)
[2024-08-28] MEDS: ROXICODONE 2.5 MG PO ×2 (15:18→21:54)
[2024-08-28] MEDS: KCL 20 MEQ PO (16:24)
[2024-08-28] MEDS: ZETIA 10 MG PO (16:24)
[2024-08-28] MEDS: CRESTOR 40 MG PO (16:24)
--- NOTE | 2024-08-28 16:32 | PTCARENOTE ---
VSS, sinus rhythm on tele, pt medicated for pain w good relief.
--- NOTE | 2024-08-28 16:36 | CM ---
dc plans remain home with ct transitional care nurse when medically stable.
[2024-08-28 17:23] LABS: Glucose - Point of Care 130 mg/dl (70-99)
[2024-08-28 21:37] LABS: Glucose - Point of Care 123 mg/dl (70-99)
[2024-08-29] VITALS (13 sets, daily range): BP systolic 101–160; BP diastolic 53–84; PULSE 66; O2SAT 96–97; BMI 32.8
[2024-08-29] MEDS: ROXICODONE 2.5 MG PO ×2 (03:55→13:20)
[2024-08-29 04:53] LABS: Blood Urea Nitrogen 23 mg/dl (7-17); Calcium 8.5 mg/dl (8.4-10.2); Carbon Dioxide 27 mmol/L (22-30); Chloride 96 mmol/L (98-107); Estimated Creatinine Clearance 72 ml/min; Glucose 110 mg/dl (70-99); Magnesium 2.4 mg/dl (1.6-2.3); Sodium 134 mmol/L (135-145); eGFR > 60.00
[2024-08-29 04:56] LABS: Hematocrit 26.7 % (37.0-47.0); Hemoglobin 9.2 g/dL (12.0-16.0); Mean Corp Hgb Conc. 34.5 g/dL (33.0-37.0); Mean Corpuscular Hgb 30.5 pg (27.0-31.0); Mean Corpuscular Volume 88.4 fL (81.0-99.0); Mean Platelet Volume 11.9 fL (7.4-10.4); Platelet Count 109 10^3/uL (130-400); Red Blood Cell Count 3.02 10^6/uL (4.20-5.40); Red Cell Dist. Width 13.1 % (11.5-14.5); White Blood Cell Count 13.4 10^3/uL (4.8-10.8)
[2024-08-29] MEDS: TYLENOL 1000 MG PO ×3 (06:34→21:00)
[2024-08-29 08:01] LABS: Glucose - Point of Care 114 mg/dl (70-99)
[2024-08-29] MEDS: NOVOLOG FLEXPEN-MODERATE RESISTANCE SC ×3 (08:38→17:41)
--- NOTE | 2024-08-29 08:59 | W.PN.CT ---
Today's Communication / Plan
-
-No major issues overnight. Hemodynamically intact
-Cont. diuresis. 24hr u/o 1825 mL. Check wt today
-Hyponatremia is improving, 134, was 131 yesterday
-Will place mag oxide on hold, mg is 2.4 today
-Encourage use of IS
-OOB into chair/Ambulate
-Home likely tomorrow
Assessment / Plan
-
- Severe aortic valve stenosis, with moderate degree of aortic valve insufficiency, appeared either rheumatic or congenital with very thickened leaflets
-s/p Surgical aortic valve replacement [23 mm Inspiris Resilia bioprosthesis] and Aortic root enlargement [[facility]] with bovine pericardial patch on 08/25/[address] Frye, pod #4
- Intraop PETER: LVEF preop was 65% with no significant regional wma. Following surgery she was slightly hyperdynamic with an EF of 65 to 70% with no new regional wma. Initially coming off of cardiopulmonary bypass she had some RV dysfunction that
resolved with resting on cardiopulmonary bypass. The mean gradient across her new bioprosthesis was 10 mmHg.
- Acute intraop transient ST segment elevation with hypotension, likely consistent with air into the right coronary ostium- resolved
- Hypertension
- Hyperlipidemia
- Class 1 obesity, BMI 30
- Migraines
- Chronic diastolic dysfunction with mild to moderate degree of hypertrophic left ventricle
- Mild mitral valve insufficiency
- Non-smoker
- Acute postop blood loss anemia - stable, s/p 2 pRBCs and 2 cell saver in OR
- Acute postop thrombocytopenia
- Acute postop atelectasis
- Acute postop hypovolemia with subsequent hypervolemia
- JUSTO-improving
- Acute postop hyponatremia
Discussed patient care with: Cardiology, Nursing, Respiratory Therapy, Pharmacy and Care Team
Subjective
Procedure
-s/p Surgical aortic valve replacement [23 mm Inspiris Resilia bioprosthesis] and Aortic root enlargement [[facility]ouguian] on 08/25/[address] Frye
-
Date of Service: August 29, 2024
Objective Data
-
Lab Results
08/29/24 03:49
08/29/24 03:49
PT 18.9 Sec (11.4-14.6) H 08/25/24 12:17
INR 1.60 08/25/24 12:17
APTT 43.8 Sec (23.4-35.0) H 08/25/24 12:17
Vital Signs
Vital Signs
Temp Pulse Resp BP Pulse Ox
97.4 F 69 18 153/71 93
08/29/24 07:25 08/29/24 03:37 08/29/24 07:25 08/29/24 03:37 08/29/24 07:25
CT Intake/Output/Weight
08/28/24 08/29/24 08/29/24
18:59 06:59 18:59
Intake Total 120 / 600 480 / 600
Output Total 1175 / 1825 650 / 1825
Balance -1055 / -1225 -170 / -1225
SaO2: 93
Physical Exam
-
General: Awake, Oriented and AOx3
Cardiovascular: Regular rate & rhythm, No Murmurs, No Rub and No Gallop
Respiratory: Decreased Breath Sounds
Sternum: Stable
Incision: Clean, Dry, Intact and Dressing Intact
Extremities: Other (+trace edema)
Data Reviewed
-
Lab Results: Results Reviewed
Medications: Active Meds Reviewed
Chest X-Ray: Report Reviewed and Image Reviewed
ECG: Report Reviewed and Image Reviewed
[2024-08-29] MEDS: SENOKOT-S PO ×2 (09:37→19:32)
[2024-08-29] MEDS: MIRALAX PO (09:37)
[2024-08-29] MEDS: MAGNESIUM OXIDE PO (09:38)
[2024-08-29] MEDS: NEURONTIN 100 MG PO ×3 (09:49→21:00)
[2024-08-29] MEDS: BACTROBAN 2% OINTMENT 1 APPLIC NASAL (09:49)
[2024-08-29] MEDS: MUCINEX 600 MG PO ×2 (09:49→19:31)
[2024-08-29] MEDS: PACERONE 200 MG PO ×3 (09:49→21:00)
[2024-08-29] MEDS: LOW STRENGTH ASPIRIN 81 MG PO (09:49)
[2024-08-29] MEDS: KCL 20 MEQ PO ×2 (09:55)
[2024-08-29] MEDS: PROTONIX 40 MG PO (09:55)
[2024-08-29] MEDS: LOPRESSOR 25 MG PO ×2 (09:56→19:31)
[2024-08-29] MEDS: LASIX 40 MG IV (09:56)
[2024-08-29] MEDS: LOPRESSOR PO (10:18)
[2024-08-29] MEDS: BUMEX 1 MG IV ×2 (11:14→19:32)
[2024-08-29] MEDS: NSS IV (11:21)
--- NOTE | 2024-08-29 11:50 | W.PN.CD ---
Addendum entered and electronically signed by Dashawn Cole MD 08/29/24 13:30:
Patient seen and evaluated personally. I agree with the note, documentation and plan of care as noted below.
Briefly 63-year-old woman with a history of severe aortic stenosis and possible rheumatic versus congenital thickened leaflets status post surgical aortic valve replacement with 23 Inspiris bioprosthesis. Patient's aortic root was also repaired
with bovine pericardial patch on 08/25/2024. Patient is doing well with the postop recovery. Stable recovery and tolerating home meds. On amiodarone, aspirin, metoprolol, Zetia, Crestor. Likely discharge in the morning.
Original Note:
Today's Communication / Plan
-
Diuresis con't
post op care per CTS
Impression / Plan
-
Impression/Plan: 63F with hypertension, dyslipidemia, and severe aortic stenosis admitted for elective SAVR.
#Severe aortic stenosis
-Chronic.
-s/p aortic root enlargement (bovine pericardial patch, SN #[id number]) and surgical aortic valve replacement (#23 Gomez Inspiris Resilia SAVR, SN #[id number]), 08/25/[address] Frye.
-Preop LVEF 65%, postop hyperdynamic with an EF of 65-70%, initially coming off bypass she had some RV dysfunction that resolved with resting on bypass.
-Postop mean gradient 10 mmHg.
-Procedural anemia treated with 1 unit PRBC IntraOp and 2 bowls of Cell Saver.
-Upon chest closure, she had sudden ST changes and hypotension, pressure drove up with MAP of 70s which resulted in resolution of ST segment elevation which is likely consistent with a air in the right coronary ostium.
-Continue amiodarone, aspirin, ezetimibe, nicardipine, metoprolol and rosuvastatin.
-Encourage incentive spirometry.
- pleural effusions on CXR 08/29, diuretics escalated ,
#Hypertension
-Chronic, stable.
-BP currently stable.
-will restart meds after diuresis.
#Dyslipidemia
-Chronic, stable.
-Continue rosuvastatin 40 mg and ezetimibe 10mg.
#Prediabetes, HbA1c 5.9%
#Chronic migraines
Student Activities Director: Dr. Nolan
Subjective/Interval History:
No CP, mild SOB. Legs feel swollen.
DATA:
Intraprocedural PETER, 08/25/2024:
CONCLUSIONS
Normal biventricular systolic function with no wall motion abnormalities. The
LVEF is 65-70% by visual inspection.
Trileaflet aortic valve with severely thickened and restricted leaflets.
Severe aortic stenosis. Moderate aortic insufficiency.
Trace to mild mitral regurgitation with mildly thickened anterior leaflet.
The tricuspid valve is normal.
Grade III atheromatous disease is seen in the arch and descending thoracic
aorta.
POST OPERATIVE FINDINGS
S/P AVR with size 23 bioprosthetic with aortic root enlargement
Transthoracic echocardiogram, 06/17/2024:
Normal left ventricular size with mild concentric remodeling and normal
systolic function. No regional wall motion abnormalities are seen. LV ejection
fraction is 65-70% by Mcmahon's method of discs. Stage I diastolic dysfunction
suggestive of abnormal relaxation.
Normal right ventricular size and function.
Normal atria.
Mildly thickened mitral valve leaflets with calcification of the anterior mitral leaflet tip.
Thickened aortic valve with restricted leaflet motion, severe aortic stenosis and moderate insufficiency.
No evidence of pulmonary hypertension.
Coronary angiography, 07/24/2024:
Dominance: right
LM: normal
LAD: large vessel giving rise to a large D1 and wrapping around the apex. No CAD.
LCx: large vessel giving rise to a small OM1/ramus, large OM2, and moderate-caliber OM3. No CAD.
RCA: large vessel giving rise to a medium caliber RPDA and several small RPL branches. No CAD.
Physical Exam
Vital Signs/Labs
Vital Signs
Temp Pulse Resp BP Pulse Ox
97.4 F 70 18 159/62 93
08/29/24 07:25 08/29/24 11:14 08/29/24 07:25 08/29/24 11:14 08/29/24 08:59
08/28/24 08/29/24 08/30/24
06:59 06:59 06:59
Actual Weight 90.3 kg 89.3 kg
08/29/24 03:49
PT 18.9 Sec (11.4-14.6) H 08/25/24 12:17
INR 1.60 08/25/24 12:17
APTT 43.8 Sec (23.4-35.0) H 08/25/24 12:17
Magnesium 2.4 mg/dl (1.6-2.3) H 08/29/24 03:49
Physical Exam
Constitutional: No acute distress
Cardiovascular: Rhythm & rate is regular and Pedal edema present
Respiratory: Respiratory effort normal and Crackles Absent (L base rales)
GI: Soft, Non tender and Normal bowel sounds
Neuro/Psych: AO x 3
Other: Other (MSI well approximated )
Data Reviewed
-
Date of Service: August 29, 2024
X-Ray/CT/US/MRI/NUC/PET: Report Reviewed by me (08/29/24 CXR mild-mod bilat pleural effuisons)
Labs: Labs Reviewed by me
[2024-08-29 11:59] LABS: Glucose - Point of Care 106 mg/dl (70-99)
[2024-08-29 14:51] LABS: Blood Urea Nitrogen 20 mg/dl (7-17); Calcium 8.6 mg/dl (8.4-10.2); Carbon Dioxide 28 mmol/L (22-30); Chloride 96 mmol/L (98-107); Estimated Creatinine Clearance 65 ml/min; Glucose 114 mg/dl (70-99); Potassium 4.1 mmol/L (3.5-5.1); Sodium 136 mmol/L (135-145); eGFR > 60.00
[2024-08-29 17:38] LABS: Glucose - Point of Care 111 mg/dl (70-99)
[2024-08-29] MEDS: CRESTOR 40 MG PO (17:38)
[2024-08-29] MEDS: ZETIA 10 MG PO (17:38)
--- NOTE | 2024-08-29 17:50 | PTCARENOTE ---
Patient continues to be SR on the monitor, VSS. Pt sternum GUANAKO, pt complains of pain at site, Lisa given, see MAR. Pt ambulating in room and tolerating well. Pt educated on plan of care, pt verbalizes understanding. Call donovan within reach.
[2024-08-29] MEDS: KLOR-CON 20 MEQ PO (19:31)
[2024-08-29 21:20] LABS: Glucose - Point of Care 143 mg/dl (70-99)
[2024-08-29] MEDS: ROXICODONE 5 MG PO (22:02)
[2024-08-30] VITALS (7 sets, daily range): BP systolic 120–147; BP diastolic 59–86; BMI 31.9
[2024-08-30 04:42] LABS: Hematocrit 26.5 % (37.0-47.0); Mean Corpuscular Hgb 28.9 pg (27.0-31.0); Mean Corpuscular Volume 85.2 fL (81.0-99.0); Mean Platelet Volume 11.2 fL (7.4-10.4); Platelet Count 150 10^3/uL (130-400); Red Blood Cell Count 3.11 10^6/uL (4.20-5.40); Red Cell Dist. Width 13.2 % (11.5-14.5); White Blood Cell Count 12.5 10^3/uL (4.8-10.8)
[2024-08-30 05:03] LABS: Blood Urea Nitrogen 21 mg/dl (7-17); Calcium 8.6 mg/dl (8.4-10.2); Carbon Dioxide 28 mmol/L (22-30); Chloride 97 mmol/L (98-107); Estimated Creatinine Clearance 82 ml/min; Glucose 98 mg/dl (70-99); Magnesium 2.3 mg/dl (1.6-2.3); Potassium 4.2 mmol/L (3.5-5.1); Sodium 136 mmol/L (135-145); eGFR > 60.00
--- NOTE | 2024-08-30 06:24 | W.PN.CT ---
Today's Communication / Plan
-
-No major issues overnight. Hemodynamically intact
-Cont. diuresis. 24hr u/o 1825 mL. Check wt today
-Hyponatremia has resolved, 136
-Will place mag oxide on hold, mg is 2.4 today
-Encourage use of IS
-OOB into chair/Ambulate
-Home today
Assessment / Plan
-
- Severe aortic valve stenosis, with moderate degree of aortic valve insufficiency, appeared either rheumatic or congenital with very thickened leaflets
-s/p Surgical aortic valve replacement [23 mm Inspiris Resilia bioprosthesis] [facility] with bovine pericardial patch on 08/25/[address] Frye, pod #5
- Intraop PETER: LVEF preop was 65% with no significant regional wma. Following surgery she was slightly hyperdynamic with an EF of 65 to 70% with no new regional wma. Initially coming off of cardiopulmonary bypass she had some RV dysfunction that
resolved with resting on cardiopulmonary bypass. The mean gradient across her new bioprosthesis was 10 mmHg.
- Acute intraop transient ST segment elevation with hypotension, likely consistent with air into the right coronary ostium- resolved
- Hypertension
- Hyperlipidemia
- Class 1 obesity, BMI 30
- Migraines
- Chronic diastolic dysfunction with mild to moderate degree of hypertrophic left ventricle
- Mild mitral valve insufficiency
- Non-smoker
- Acute postop blood loss anemia - stable, s/p 2 pRBCs and 2 cell saver in OR
- Acute postop thrombocytopenia
- Acute postop atelectasis
- Acute postop hypovolemia with subsequent hypervolemia
- JUSTO-improving
- Acute postop hyponatremia
Discussed patient care with: Cardiology, Nursing, Respiratory Therapy, Pharmacy and Care Team
Subjective
Procedure
-s/p Surgical aortic valve replacement [23 mm Inspiris Resilia bioprosthesis] and Aortic root enlargement [Manouguian] on 08/25/[address] Frye
-
Date of Service: August 30, 2024
c/o mild incisional pain, otherwise feels well
Objective Data
-
Lab Results
08/30/24 04:16
08/30/24 04:16
PT 18.9 Sec (11.4-14.6) H 08/25/24 12:17
INR 1.60 08/25/24 12:17
APTT 43.8 Sec (23.4-35.0) H 08/25/24 12:17
Vital Signs
Vital Signs
Temp Pulse Resp BP Pulse Ox
98.3 F 63 18 136/86 96
08/30/24 04:05 08/30/24 05:00 08/30/24 04:05 08/30/24 04:05 08/30/24 04:05
CT Intake/Output/Weight
08/29/24 08/29/24 08/30/24
06:59 18:59 06:59
Intake Total 480 / 600 480 / 960 480 / 960
Output Total 650 / 1825
Balance -170 / -1225 480 / 960 480 / 960
SaO2: 96 (RA)
Physical Exam
-
General: Awake, Oriented and AOx3
Cardiovascular: Regular rate & rhythm and No Murmurs
Respiratory: Decreased Breath Sounds
Sternum: Stable
Incision: Clean, Dry, Intact and Dressing Intact
Extremities: No Edema
Data Reviewed
-
Lab Results: Results Reviewed
Medications: Active Meds Reviewed
Chest X-Ray: Report Reviewed and Image Reviewed
ECG: Report Reviewed and Image Reviewed
[2024-08-30] MEDS: TYLENOL 1000 MG PO ×3 (06:29→22:49)
[2024-08-30 07:47] LABS: Glucose - Point of Care 108 mg/dl (70-99)
[2024-08-30] MEDS: NOVOLOG FLEXPEN-MODERATE RESISTANCE SC ×2 (08:46→12:00)
--- NOTE | 2024-08-30 09:02 | W.PN.CD ---
Today's Communication / Plan
-
-Continue diuresis
-Restart losartan at a lower dose 25 mg daily
Impression / Plan
-
Impression/Plan: 63F with hypertension, dyslipidemia, and severe aortic stenosis admitted for elective SAVR.
#Severe aortic stenosis
-Chronic.
-s/p aortic root enlargement (bovine pericardial patch, SN #[id number]) and surgical aortic valve replacement (#23 Gomez Inspiris Resilia SAVR, SN #[id number]), 08/25/[address] rFye.
-Preop LVEF 65%, postop hyperdynamic with an EF of 65-70%, initially coming off bypass she had some RV dysfunction that resolved with resting on bypass.
-Postop mean gradient 10 mmHg.
-Procedural anemia treated with 1 unit PRBC IntraOp and 2 bowls of Cell Saver.
-Upon chest closure, she had sudden ST changes and hypotension, pressure drove up with MAP of 70s which resulted in resolution of ST segment elevation which is likely consistent with a air in the right coronary ostium.
-Continue amiodarone, aspirin, ezetimibe, nicardipine, metoprolol and rosuvastatin.
-Encourage incentive spirometry.
- pleural effusions on CXR 08/29, diuretics escalated ,
#Hypertension
-Chronic, stable.
-BP currently stable.
-We will resume losartan at 25 mg once a day. Continue Bumex, metoprolol and amiodarone
#Dyslipidemia
-Chronic, stable.
-Continue rosuvastatin 40 mg and ezetimibe 10mg.
#Prediabetes, HbA1c 5.9%
#Chronic migraines
Supervisor Cemetery Workers: Dr. Nolan
Subjective/Interval History:
No CP, mild SOB. Legs feel swollen.
DATA:
Intraprocedural PETER, 08/25/2024:
CONCLUSIONS
Normal biventricular systolic function with no wall motion abnormalities. The
LVEF is 65-70% by visual inspection.
Trileaflet aortic valve with severely thickened and restricted leaflets.
Severe aortic stenosis. Moderate aortic insufficiency.
Trace to mild mitral regurgitation with mildly thickened anterior leaflet.
The tricuspid valve is normal.
Grade III atheromatous disease is seen in the arch and descending thoracic
aorta.
POST OPERATIVE FINDINGS
S/P AVR with size 23 bioprosthetic with aortic root enlargement
Transthoracic echocardiogram, 06/17/2024:
Normal left ventricular size with mild concentric remodeling and normal
systolic function. No regional wall motion abnormalities are seen. LV ejection
fraction is 65-70% by Mcmahon's method of discs. Stage I diastolic dysfunction
suggestive of abnormal relaxation.
Normal right ventricular size and function.
Normal atria.
Mildly thickened mitral valve leaflets with calcification of the anterior mitral leaflet tip.
Thickened aortic valve with restricted leaflet motion, severe aortic stenosis and moderate insufficiency.
No evidence of pulmonary hypertension.
Coronary angiography, 07/24/2024:
Dominance: right
LM: normal
LAD: large vessel giving rise to a large D1 and wrapping around the apex. No CAD.
LCx: large vessel giving rise to a small OM1/ramus, large OM2, and moderate-caliber OM3. No CAD.
RCA: large vessel giving rise to a medium caliber RPDA and several small RPL branches. No CAD.
Physical Exam
Vital Signs/Labs
Vital Signs
Temp Pulse Resp BP Pulse Ox
98.5 F 63 20 136/86 96
08/30/24 06:55 08/30/24 05:00 08/30/24 06:55 08/30/24 04:05 08/30/24 06:55
08/29/24 08/30/24 08/31/24
06:59 06:59 06:59
Actual Weight 89.3 kg 86.9 kg
08/30/24 04:16
08/30/24 04:16
PT 18.9 Sec (11.4-14.6) H 08/25/24 12:17
INR 1.60 08/25/24 12:17
APTT 43.8 Sec (23.4-35.0) H 08/25/24 12:17
Magnesium 2.3 mg/dl (1.6-2.3) 08/30/24 04:16
Physical Exam
Constitutional: No acute distress and Comfortable
EENT: Anicteric and Moist mucous membranes
Cardiovascular: Rhythm & rate is regular, Pedal edema is absent and JVD pressure is normal
Respiratory: Respiratory effort normal, Lungs clear to auscul. and Wheeze Absent
GI: Soft, Non tender and Normal bowel sounds
Neuro/Psych: Alert, Oriented and AO x 3
Data Reviewed
-
Date of Service: August 30, 2024
Medical Decision Making: Reviewed Test Results, Independent Historian Assessment and Test Interpretation
EKG: Tracing Personally Visualized and interpreted
Echo: Report Reviewed by me
Labs: Labs Reviewed by me
Old Records: Reviewed
[2024-08-30] MEDS: MUCINEX 600 MG PO ×2 (09:41→20:04)
[2024-08-30] MEDS: PACERONE 200 MG PO ×3 (09:41→22:49)
[2024-08-30] MEDS: NEURONTIN 100 MG PO ×3 (09:41→22:50)
[2024-08-30] MEDS: LOPRESSOR 25 MG PO ×2 (09:42→20:04)
[2024-08-30] MEDS: PROTONIX 40 MG PO (09:42)
[2024-08-30] MEDS: LOW STRENGTH ASPIRIN 81 MG PO (09:42)
[2024-08-30] MEDS: SENOKOT-S PO (09:43)
[2024-08-30] MEDS: MIRALAX PO (09:43)
[2024-08-30] MEDS: KCL 20 MEQ PO (11:13)
[2024-08-30] MEDS: BUMEX 0.5 MG IV ×2 (11:14→15:41)
[2024-08-30] MEDS: NSS IV (11:17)
[2024-08-30 11:55] LABS: Glucose - Point of Care 94 mg/dl (70-99)
[2024-08-30] MEDS: ROXICODONE 5 MG PO (13:25)
[2024-08-30] MEDS: ZETIA 10 MG PO (15:41)
[2024-08-30] MEDS: CRESTOR 40 MG PO (15:41)
[2024-08-30] MEDS: KCL 10 MEQ PO (15:44)
[2024-08-30 17:34] LABS: Glucose - Point of Care 117 mg/dl (70-99)
--- NOTE | 2024-08-30 19:14 | PTCARENOTE ---
pt continues to be sr on the monitor, vss. ot offers no complaints at this time. pt has been ambulating in the room and tolerating well. pt educated on plan of care and pt verbalized understanding. call donovan within reach.
[2024-08-30] MEDS: SENOKOT-S 1 TABLET PO (20:04)
[2024-08-30] MEDS: ROXICODONE 2.5 MG PO (22:50)
--- NOTE | 2024-08-30 23:56 | PTCARENOTE ---
received patient at the change of shift. AAOx3. complains of discomfort at sternal incision. PRN pain medications given-see jan. SR 60s on tele. bp stable. sternal incision, approximated, scabbed, GUANAKO. CT site dressing intact. patient complains of
thigh 'tightness.' patient states LE swelling is not her baseline. +1/2 LE edema/non pitting. + pulses. elevated legs on pillow with some relief per patient. educated patient to inform RN with any changes. IS encouraged. sternal precautions
maintained. call donovan within reach.
[2024-08-31 03:33] VITALS: BMI 31.7
[2024-08-31 03:47] VITALS: BP 143/71
--- NOTE | 2024-08-31 05:48 | W.PN.CT ---
Today's Communication / Plan
-
-No major issues overnight. Hemodynamically intact
-Cont. diuresis. 24hr u/o 1500 mL
-Hyponatremia has resolved, 138
-Encourage use of IS
-OOB into chair/Ambulate
-Home today
Assessment / Plan
-
- Severe aortic valve stenosis, with moderate degree of aortic valve insufficiency, appeared either rheumatic or congenital with very thickened leaflets
-s/p Surgical aortic valve replacement [23 mm Inspiris Resilia bioprosthesis] and Aortic root enlargement [facility]] with bovine pericardial patch on 08/25/[address] Frye, pod #6
- Intraop PETER: LVEF preop was 65% with no significant regional wma. Following surgery she was slightly hyperdynamic with an EF of 65 to 70% with no new regional wma. Initially coming off of cardiopulmonary bypass she had some RV dysfunction that
resolved with resting on cardiopulmonary bypass. The mean gradient across her new bioprosthesis was 10 mmHg.
- Acute intraop transient ST segment elevation with hypotension, likely consistent with air into the right coronary ostium- resolved
- Hypertension
- Hyperlipidemia
- Class 1 obesity, BMI 30
- Migraines
- Chronic diastolic dysfunction with mild to moderate degree of hypertrophic left ventricle
- Mild mitral valve insufficiency
- Non-smoker
- Acute postop blood loss anemia - stable, s/p 2 pRBCs and 2 cell saver in OR
- Acute postop thrombocytopenia
- Acute postop atelectasis
- Acute postop hypovolemia with subsequent hypervolemia
- JUSTO-improving
- Acute postop hyponatremia
Discussed patient care with: Cardiology, Nursing, Respiratory Therapy, Pharmacy and Care Team
Subjective
Procedure
-s/p Surgical aortic valve replacement [23 mm Inspiris Resilia bioprosthesis] and Aortic root enlargement [[facility]] on 08/25/[address] Frye
-
Date of Service: August 31, 2024
Pt c/o mild incisional pain, otherwise feels well
Objective Data
-
Lab Results
08/30/24 04:16
08/30/24 04:16
PT 18.9 Sec (11.4-14.6) H 08/25/24 12:17
INR 1.60 08/25/24 12:17
APTT 43.8 Sec (23.4-35.0) H 08/25/24 12:17
Vital Signs
Vital Signs
Temp Pulse Resp BP Pulse Ox
97.9 F 70 20 143/71 97
08/31/24 03:33 08/31/24 03:47 08/31/24 03:33 08/31/24 03:47 08/31/24 03:33
CT Intake/Output/Weight
08/30/24 08/30/24 08/31/24
06:59 18:59 06:59
Intake Total 480 / 960 480 / 730 250 / 730
Output Total 600 / 600 1300 / 1300
Balance -120 / 360 480 / -570 -1050 / -570
SaO2: 97 (RA)
Physical Exam
-
General: Awake, Oriented and AOx3
Cardiovascular: Regular rate & rhythm, No Murmurs, No Rub and No Gallop
Respiratory: Decreased Breath Sounds (at bases, otherwise clear)
Sternum: Stable
Incision: Clean, Dry, Intact and Dressing Intact
Extremities: Other (+trace edema)
Data Reviewed
-
Lab Results: Results Reviewed
Medications: Active Meds Reviewed
Chest X-Ray: Report Reviewed and Image Reviewed
ECG: Report Reviewed and Image Reviewed
[2024-08-31] MEDS: TYLENOL 1000 MG PO (06:20)
[2024-08-31 06:26] LABS: Blood Urea Nitrogen 15 mg/dl (7-17); Calcium 8.8 mg/dl (8.4-10.2); Carbon Dioxide 26 mmol/L (22-30); Chloride 100 mmol/L (98-107); Estimated Creatinine Clearance 92 ml/min; Glucose 99 mg/dl (70-99); Magnesium 2.1 mg/dl (1.6-2.3); Potassium 4.4 mmol/L (3.5-5.1); Sodium 138 mmol/L (135-145); eGFR > 60.00
[2024-08-31 07:35] LABS: Glucose - Point of Care 98 mg/dl (70-99)
[2024-08-31 07:37] VITALS: BP 144/69
[2024-08-31] MEDS: PACERONE 200 MG PO (08:45)
[2024-08-31] MEDS: NEURONTIN 100 MG PO (08:46)
[2024-08-31] MEDS: MUCINEX 600 MG PO (08:46)
[2024-08-31] MEDS: LOPRESSOR 25 MG PO (08:46)
[2024-08-31] MEDS: PROTONIX 40 MG PO (08:46)
[2024-08-31] MEDS: LOW STRENGTH ASPIRIN 81 MG PO (08:47)
[2024-08-31] MEDS: MIRALAX PO (08:51)
[2024-08-31] MEDS: SENOKOT-S PO (08:52)
[2024-08-31] MEDS: NSS IV (08:52)
--- NOTE | 2024-08-31 09:33 | W.[place]-PDMP ---
[place]-PDMP
-
Checked the [place]- Pres[place] Drug Monitoring Program website, no red flags identified; safe to proceed with prescription.
--- NOTE | 2024-08-31 09:33 | W.DCSUMMARY ---
Discharge Summary
Discharge Data
Date of Admission: 08/25/24
Date of Discharge: 08/31/24
Total time spent discharging patient (in min): 40
-
Pending Results: No
Hospital Course
Primary care physician:
Dr. Alejandra Walter
Outpatient reed worker:
Dr. Yaquelin Nolan
Inpatient consultants:
CBC, steam generating powerplant mechanic
Procedures:
1. Aortic root enlargement [[facility]] and Surgical aortic valve replacement [23 mm bioprosthesis]
Primary Diagnosis:
1. Aortic valve stenosis with moderate degree of aortic valve insufficiency
Secondary Diagnoses:
1. Hypertension
2. Hyperlipidemia
3. Migraines
4. Morbidly Obese
5. Mild Mitral insufficiency
6. Post-operative fluid overload
HPI: 63-year-old female with longstanding aortic valve stenosis. She has a peak/mean gradient 77/49 mmHg and a small LVOT measuring 1.8 cm. CHAR calculated to be 0.7. She also at least mild to moderate aortic valve insufficiency. There is some
calcification of her anterior leaflet of the mitral valve the free margin resulting in mild insufficiency. Her BSA is 1.9 and her BMI is 30.8. From a symptomatology standpoint she has been developing more shortness of breath with walking and
inclines as well as chest heaviness and intermittent lightheadedness with dyspnea. Given her young age, she was referred for surgical arctic valve replacement. She presented electively on 08/[address] Frye.
Hospital course:
Patient presented electively on 08/[address] Frye. Post-op she returned to the CVICU for the remainder of her recovery. She was on levophed, precedex, and insulin. She was weaned off precedex and patient was extubated. On 08/26
postoperative day #1 patient was declined she was given 2 A of sodium bicarb and 250 mL of 5% albumin and started on 25% albumin. Due to her hypertrophic heart she was not diuresed aggressively. On 08/27 postoperative day #2 she was given 20 mg of
IV Lasix, chest tubes and epicardial wires were pulled. On 08/28 postoperative day #3 patient was diuresed with 40 mg of IV Lasix twice daily and teds were applied. On 08/29 postoperative day #4 patient was given 40 mg of IV Lasix in the morning but
then started on Bumex 1 mg twice daily. Her two-view chest x-ray showed a small pleural effusion. Patient was ambulating without issue. On 08/30, postoperative day #5 patient was diuresed with Bumex twice daily. On 08/31 postoperative day #6
patient was started on oral Lasix. She was deemed stable for discharge and she will continue her regimen of 40 mg twice daily for 4 days total and then transition to 40 mg daily.
Home medication changes:
See below
Discharge Plan
-
Patient Disposition: Home (Routine Discharge)
Discharge Diagnosis/Procedures: AVR
Condition: Good
Diet: Restrict fluids to 64 oz
Activity: No strenuous activity
Driving Restrictions: Not until seen by your Dr
Bathing Restrictions: OK to Shower
Blood Work: BMP and magnesium in 1 week
Other Services: Cardiac Rehab
Specialty Instructions: Weigh Daily- Call MD for wt gain/loss 3 lbs overnight/5 lbs in 1 week
Activity Restrictions/Additional Instructions:
ACTIVITY:
-No strenuous activity: no heavy lifting, pushing, pulling anything over 15 pounds for one month
-continue to use stairs as tolerated
- Wear a surgical bra as able
DRIVING RESTRICTIONS:
-No driving for one month or until approved by your surgeon
WOUND CARE:
-Shower daily. Use soap & water.
-No lotions, creams or powders on incision area.
DIET:
-continue a low fat/low cholesterol diet.
-IF you are diabetic, continue carb controlled diet.
CARDIAC REHAB:
-Please make appointment to start in 5-6 weeks with your local hospital program. (See Cardiac Rehabilitation Discharge Booklet).
SPECIALTY INSTRUCTIONS:
-Weigh yourself daily. Call your physician for any weight gain/loss of 3 lbs overnight or 5 lbs in one week.
-REPORT any clicking noise or uneven appearance of your sternum to your surgeon immediately.
-If you smoke, you are instructed to quit. The [place] smoking hotline phone number is [phone]
Referrals:
CT Transitional Care Nurse [Outside] (The Cardiothoracic Transitional Care Nurse will call you to set up a visit in 1-2 days.)
[facility] [Outside] - 09/29/24 1:00 pm
(Cardiac Rehab Orientation appointment is on September 29 at 1pm.
The Cardiac Rehab gym is located on the first floor of the [facility].)
Amanda More CRNP [Specified Professional Personl] - 10/12/24 10:00 am
Alejandra Walter MD [Family Provider] -
Willy Frye MD [Active] - 09/23/24 2:45 pm
Additional Discharge Medication Instructions: Do not resume losartan until instructed by a healthcare profession
Lasix:
Please take lasix twice a day for three days after discharge, after 3 days on 09/04 you will take lasix ONCE a day
take the potassium supplements while on lasix.
weigh yourself everyday while on lasix.
Prescriptions:
New
acetaminophen 325 mg Tablet
650 mg PO Q4HPRN PRN (Reason: mild pain,headache,temp >101F ) Qty: 0 0RF
metoprolol tartrate 25 mg Tablet
25 mg PO BID Qty: 60 1RF
oxycodone 5 mg Tablet
2.5 mg PO Q6HPRN PRN (Reason: severe pain) Qty: 15 0RF
furosemide [Lasix] 40 mg tablet
40 mg PO BID Qty: 7 0RF
furosemide [Lasix] 40 mg tablet
40 mg PO DAILY Qty: 7 0RF
Rx Instructions:
start on 09/04
potassium chloride 20 mEq tablet extended release
20 meq PO DAILY Qty: 14 0RF
Rx Instructions:
Only take while on lasix
Continued
docusate sodium [Dulcolax Stool Softener (dss)] 100 MG capsule
300 mg PO DAILY
rosuvastatin 40 MG tablet
40 mg PO QPM
polyethylene glycol 3350 [Miralax] 17 gram Powder In Packet
17 g PO DAILY
fluticasone propionate 50 mcg/actuation [place],Suspension
1 spray INTRANASAL PRN PRN (Reason: allergies)
ezetimibe 10 mg Tablet
10 mg PO QPM
Acidophilus Tablet,Chewable
3 tab PO DAILY
pimecrolimus 1 % Cream
1 applic TOPICAL PRN PRN (Reason: dermatitis)
aspirin 81 mg Tablet,Chewable
81 mg PO DAILY
triamcinolone acetonide 0.05 % Ointment
1 applic TOPICAL DAILY PRN (Reason: rash)
diphenhydramine HCl [Benadryl] 25 mg Capsule
25 mg PO HS PRN (Reason: allergy symptoms)
Discontinued
losartan 50 mg Tablet
50 mg PO DAILY
Discharge Orders:
Discharge Patient (As Directed); Ordered 08/31/24
Ordered By: Charleen Kilpatrick
Care Plan Goals
Care Plan Goals:
Problem: Readiness for enhanced knowledge related to diagnosis and treatment plan
Goal: Understand your diagnosis and treatment plan needs, including medications if applicable.
Instructions: Know your diagnosis, underlying causes and treatment plan options, including medications if applicable. Consult with your health care team to learn about your diagnosis and treatment plan, including medications if applicable.
Discharge Date and Time
Print Language: SLOVENIAN
[2024-08-31] MEDS: LASIX 40 MG PO (10:22)
[2024-08-31 10:41] VITALS: BP 129/64
[2024-08-31 10:53] VITALS: BP 131/61
[2024-08-31 11:00] VITALS: BP 129/64; BP 131/61; PULSE 62; O2SAT 100; O2SAT 98
--- NOTE | 2024-08-31 12:00 | PTCARENOTE ---
Pt received this am with no c/o of any pain, sob, lightheadedness or dizziness. Pt ambulating in the room independently. OOB to the chair for breakfast. 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 Dressing dry and intact to prior chest tube site. Pt given
a surgical bra and assisted with placement. Room air sat 97%. Pt discharged to home with her . Discharge instructions given and reviewed with good understanding.
== END 2024-08-31 12:33 | disposition home or self-care (01) | DRG 220 ==
LOC: IVU 04:59
PROVIDERS: Anesthesiology; Clinical Nurse Specialist Acute Care; Physician Assistant Medical; ADMITTING PHYSICIAN Thoracic Surgery (Cardiothoracic Vascular Surgery); CONSULT PHYSICIAN Internal Medicine Critical Care Medicine; FAMILY PHYSICIAN Family Medicine
PROC: B24BZZ4 Ultrasonography of Heart with Aorta, Transesophageal (ICD-10-PCS; 2024-08-25)
PROC: 5A1221Z Performance of Cardiac Output, Continuous (ICD-10-PCS; 2024-08-25)
PROC: 02UX0JZ Supplement Thoracic Aorta, Ascending/Arch with Synthetic Substitute, Open Approach (ICD-10-PCS; 2024-08-25)
PROC: 30233N1 Transfusion of Nonautologous Red Blood Cells into Peripheral Vein, Percutaneous Approach (ICD-10-PCS; 2024-08-25)
PROC: 02RF08Z Replacement of Aortic Valve with Zooplastic Tissue, Open Approach (ICD-10-PCS; 2024-08-25)
DX: I08.0 Rheumatic disorders of both mitral and aortic valves (principal); D62 Acute posthemorrhagic anemia; J98.11 Atelectasis; E87.1 Hypo-osmolality and hyponatremia; N17.9 Acute kidney failure, unspecified; I10 Essential (primary) hypertension; E78.00 Pure hypercholesterolemia, unspecified; E66.01 Morbid (severe) obesity due to excess calories; E87.70 Fluid overload, unspecified; R73.03 Prediabetes; G43.909 Migraine, unspecified, not intractable, without status migrainosus; D69.59 Other secondary thrombocytopenia; E86.1 Hypovolemia; R06.83 Snoring; Z68.31 Body mass index [BMI] 31.0-31.9, adult; Z79.82 Long term (current) use of aspirin; Z79.899 Other long term (current) drug therapy; Z82.49 Family history of ischemic heart disease and other diseases of the circulatory system
CPT/HCPCS: 88305; 88311; 36415; 36600; 71045; 71046; 80048; 80053; 81003; 81015; 82248; 82330; 82565; 82805; 82810; 82947; 82962; 83036; 83735; 84132; 84302; 84520; 85014; 85018; 85025; 85027; 85049; 85610; 85730; 86803; 86850; 86900; 86901; 86920; 87070; 87147; 93005; 93312; 93320; 93325; 93880; 94002; J2916; P9016; P9045; P9047

== ENCOUNTER 2024-09-30 08:50 | Outpatient (RCR) | payer OTHER, SELFPAY | END 2024-09-30 23:59 | disposition home or self-care (01) | LOC: CRHB 08:50 | PROVIDERS: ATTENDING PHYSICIAN Internal Medicine Cardiovascular Disease | DX: Z95.4 Presence of other heart-valve replacement (principal) | CPT/HCPCS: 93797; 93798; G0422; G0423 ==

== ENCOUNTER → 2024-10-02 07:59 | Outpatient (REF) | payer OTHER, SELFPAY | LOC: CRHB 07:59 | PROVIDERS: ATTENDING PHYSICIAN Internal Medicine Cardiovascular Disease; FAMILY PHYSICIAN Family Medicine | DX: Z95.4 Presence of other heart-valve replacement (principal) | CPT/HCPCS: G0422; G0423 ==

== ENCOUNTER 2024-10-23 08:59 | Outpatient (RCR) | payer OTHER, SELFPAY | END 2024-10-23 23:59 | disposition home or self-care (01) | LOC: CRHB 08:59 | PROVIDERS: ATTENDING PHYSICIAN Internal Medicine Cardiovascular Disease | DX: Z95.4 Presence of other heart-valve replacement (principal) | CPT/HCPCS: G0422; G0423 ==

== ENCOUNTER → 2024-10-28 07:49 | Outpatient (REF) | payer OTHER, SELFPAY | LOC: WDC 07:49 | PROVIDERS: ATTENDING PHYSICIAN Family Medicine | DX: Z12.31 Encounter for screening mammogram for malignant neoplasm of breast (principal) | CPT/HCPCS: 77063; 77067 ==

== ENCOUNTER → 2024-12-14 14:43 | Outpatient (REF) | payer OTHER, SELFPAY | LOC: RCS 14:43 | PROVIDERS: ATTENDING PHYSICIAN Thoracic Surgery (Cardiothoracic Vascular Surgery); FAMILY PHYSICIAN Family Medicine | DX: Z95.2 Presence of prosthetic heart valve (principal) | CPT/HCPCS: 93306 ==

== ENCOUNTER 2025-02-06 07:50 | Emergency (ER) | payer OTHER, SELFPAY ==
[2025-02-06 07:51] VITALS: BP 167/78
--- NOTE | 2025-02-06 08:40 | ED.GENMED ---
History of Present Illness
General
Chief Complaint: Skin Surface Trauma
Time Seen by Provider: 02/06/25 08:24
History of Present Illness
History of Present Illness:
64-year-old male presents to the emergency department for evaluation of a minor laceration to the left index finger sustained with a bagel knife. Bleeding persist despite pressure. Not on blood thinners
Past History
Past History
ED Past Medical History: None
ED Past Surgical History: None
Social History
Tobacco: Non-smoker
Review of Systems
Review of Systems
Allergies reviewed?: Yes
All Other Systems: ROS reviewed and negative except as documented in HPI and ROS
Phy Exam
Physical Exam
Physical Exam:
GEN: Well appearing, NAD, WDWN
HEENT: Oral mucosa moist, no scleral icterus
Cardiac: Regular rate
Lung: No respiratory distress, no tachypnea
MSK: No gross deformity or injuries
Skin: Good color, no pallor or jaundice, no rashes. 1 cm linear laceration transversely to the left index finger pad with mild venous bleeding, no visible foreign body
Neuro: AO x3, moves all extremities freely
Psych: Calm, cooperative
Course
Orders/Labs/Results
Orders:
Orders
02/06/25 08:40
Tetanus/Diphth/Acelpertussis [Adacel] 0.5 ml IM .ONCE ONE
Vital Signs
Initial and Last Documented VS:
Initial Vital Signs
Temp Pulse Resp BP Pulse Ox
98.4 F 86 16 167/78 100
02/06/25 07:51 02/06/25 07:51 02/06/25 07:51 02/06/25 07:51 02/06/25 07:51
Last Documented Vital Signs
Temp Pulse Resp BP Pulse Ox
98.4 F 86 16 167/78 100
02/06/25 07:51 02/06/25 07:51 02/06/25 07:51 02/06/25 07:51 02/06/25 07:51
Procedures
Laceration Closure
Left index finger:
Status of Wound: clean
Size of Wound in cm: 1
Description of Wound Edges: sharp
Preparation: cleaned with soap & water
Wound exploration: explored to base- no FB
Type of Closure: Dermabond-skin glue
MDM/Problems Addressed
MDM/Problems Addressed:
Dermabond applied for hemostasis, tetanus status updated
*Critical Care Note
Total Time (30-74mins, 75-104mins- exclusive of procedures): Not Applicable
ED Attending Note
-
Portions of this chart may have been created with voice recognition software.� Occasional wrong word or��sound alike� substitutions may have occurred due to the inherent limitations of voice recognition software.
Discharge Plan
Departure
Patient Disposition: Home (Routine Discharge)
Date of Disposition: 02/06/25
Time of Disposition: 08:40
Patient with high blood pressure during this ER visit?: Yes
Discharge Problem:
Laceration of left index finger
Instructions: Laceration Repair With Glue (DC)
Prescriptions:
No Action
docusate sodium [Dulcolax Stool Softener (dss)] 100 MG capsule
300 mg PO DAILY
rosuvastatin 40 MG tablet
40 mg PO QPM
polyethylene glycol 3350 [Miralax] 17 gram Powder In Packet
17 g PO DAILY
fluticasone propionate 50 mcg/actuation [place],Suspension
1 spray INTRANASAL PRN PRN (Reason: allergies)
ezetimibe 10 mg Tablet
10 mg PO QPM
Acidophilus Tablet,Chewable
3 tab PO DAILY
pimecrolimus 1 % Cream
1 applic TOPICAL PRN PRN (Reason: dermatitis)
aspirin 81 mg Tablet,Chewable
81 mg PO DAILY
triamcinolone acetonide 0.05 % Ointment
1 applic TOPICAL DAILY PRN (Reason: rash)
diphenhydramine HCl [Benadryl] 25 mg Capsule
25 mg PO HS PRN (Reason: allergy symptoms)
acetaminophen 325 mg Tablet
650 mg PO Q4HPRN PRN (Reason: mild pain,headache,temp >101F ) Qty: 0 0RF
metoprolol tartrate 25 mg Tablet
25 mg PO BID Qty: 60 1RF
oxycodone 5 mg Tablet
2.5 mg PO Q6HPRN PRN (Reason: severe pain) Qty: 15 0RF
furosemide [Lasix] 40 mg tablet
40 mg PO BID Qty: 7 0RF
furosemide [Lasix] 40 mg tablet
40 mg PO DAILY Qty: 7 0RF
Rx Instructions:
start on 09/04
potassium chloride 20 mEq tablet extended release
20 meq PO DAILY Qty: 14 0RF
Rx Instructions:
Only take while on lasix
Referrals:
Alejandra Walter MD [Family Provider] -
Activity Restrictions/Additional Instructions:
You may wash your hands, avoid vigorous scrubbing of the glued wound. Glue will gradually dissolve over 5 to 7 days
Interventions
Interventions:
*Risk Screen - Suicide Last Done: 02/06/25 07:51
*General Assessment Last Done: 02/06/25 07:51
*Neglect/Abuse Screening Last Done: 02/06/25 07:51
*ED- Fall Risk Assessment Last Done: 02/06/25 08:49
*ED COVID-19 Vaccine History Last Done: 02/06/25 08:49
*Nursing Disposition Last Done: 02/06/25 08:51
ED-Skin Assessment Last Done: 02/06/25 08:49
Discharge Date and Time
Discharge Date/Time: 02/06/25 08:53
Print Language: FAROESE
[2025-02-06] MEDS: ADACEL 0.5 ML IM (08:46)
== END 2025-02-06 08:53 | disposition home or self-care (01) ==
LOC: EMR 07:50
PROVIDERS: EMERGENCY PHYSICIAN Emergency Medicine; FAMILY PHYSICIAN Family Medicine
DX: S61.211A Laceration without foreign body of left index finger without damage to nail, initial encounter (principal); W26.0XXA Contact with knife, initial encounter; Z23 Encounter for immunization
CPT/HCPCS: 99282; 12001; 90471; 90715

== ENCOUNTER → 2025-03-05 07:20 | Outpatient (REF) | payer OTHER, SELFPAY | LOC: PAVMRI 07:20 | PROVIDERS: ATTENDING PHYSICIAN Family Medicine | DX: R20.0 Anesthesia of skin (principal); M79.604 Pain in right leg; M79.605 Pain in left leg | CPT/HCPCS: 72148 ==

== ENCOUNTER 2025-05-19 23:37 | Emergency (ER) | payer OTHER, SELFPAY ==
[2025-05-19 23:49] VITALS: BP 170/110
[2025-05-20 01:15] VITALS: BP 149/89
[2025-05-20 01:58] VITALS: BP 149/89
[2025-05-20 02:05] LABS: % Basophils 0.3 % (0-2); % Eosinophils 0.2 % (0-6); % Immature Granulocytes 0.5 % (0-0.5); % Lymphocytes 9.9 % (20.5-51.1); % Monocytes 6.5 % (1.7-9.3); % Neutrophils 82.6 % (42.2-75.2); Absolute Immature Granulocytes 0.1 10^3/uL (0-0.05); Absolute Lymphocytes 1.5 10^3/uL (1.2-3.4); Absolute Neutrophils 12.4 10^3/uL (1.4-6.5); Hematocrit 36.1 % (37.0-47.0); Hemoglobin 12.5 g/dL (12.0-16.0); Mean Corp Hgb Conc. 34.6 g/dL (33.0-37.0); Mean Corpuscular Hgb 29.6 pg (27.0-31.0); Mean Corpuscular Volume 85.5 fL (81.0-99.0); Mean Platelet Volume 10.7 fL (7.4-10.4); Nucleated Red Blood Cells % 0 %; Platelet Count 260 10^3/uL (130-400); Red Blood Cell Count 4.22 10^6/uL (4.20-5.40); Red Cell Dist. Width 12.7 % (11.5-14.5)
[2025-05-20] MEDS: TRANEXAMIC ACID 1000 MG TOPICAL (04:10)
[2025-05-20 04:13] VITALS: BP 149/87
--- NOTE | 2025-05-20 04:17 | ED.GENMED ---
History of Present Illness
General
Chief Complaint: Dental Problem
Source: patient
Exam Limitations: none
Time Seen by Provider: 05/20/25 03:40
Nursing documentation reviewed up to this point in time: agreed with
History of Present Illness
History of Present Illness:
CHIEF COMPLAINT(S)
Bleeding following tooth extraction.
HISTORY OF PRESENT ILLNESS
The patient is a 64-year-old female with a history of aortic stenosis, periodontal disease, htn, hlp who presents with persistent bleeding following a dental extraction approximately 12 hours prior. Initially, the patient experienced �a little bit
of throbbing pain,� and was applying gauze to help with the bleeding. Patient reports that the blood never slowed down. She called the office and she was told to continue to hold with gauze for 30 min and she was told not to spit out the blood but
to swallow it. Patient reports that this resulted in her feeling nauseated and having a few episodes of vomiting. The patient does take aspirin but is not on any blood thinners and has had a previous dental extraction without complications. The
bleeding has continued at a brisk pace despite the application of pressure and home remedies, including tea bags and additional gauze, as instructed by the dentist. She denies any fevers or chills. She denies any pain in her jaw. She is due to start
augmentin today.
PHYSICAL EXAM
General: Patient well appearing and in no acute distress
HEENT: Oral mucosa moist, bleeding socket noted at site of previous tooth 32; no pharyngeal erythema
Cardiac: Regular rate
Lung: No respiratory distress, no tachypnea
MSK: No gross deformity or injuries
Skin: Good color, no pallor or jaundice, no rashes.
Neuro: AO x3, moves all extremities freely
Psych: Calm, cooperative
PLAN
1. Application of Surgicel, an absorbable hemostat, to attempt to control the bleeding.
2. Consider initiating IV for potential administration of anti-nausea and/or pain medication, pending patient response to initial interventions.
3. Continuous monitoring and reevaluation of bleeding and patient comfort.
DIFFERENTIAL DIAGNOSIS
The Differential Diagnosis includes, in no particular order and is not limited to:
1. Post-extraction hemorrhage.
2. Coagulopathy.
3. Infection at the extraction site.
4. Underlying thrombotic disorder.
5. Hypertension exacerbating bleeding.
6. Laceration of blood vessel during extraction.
7. Undiagnosed bleeding disorder.
8. Patient non-compliance with post-op instructions.
9. Granulation tissue removal causing re-bleed.
10. Inadequate primary hemostasis technique.
REVIEW OF PRIOR RECORDS
Reviewed discharge summary from 08/31/24
DISPOSITION/MDM:
The patient is a 64-year-old female with a history of aortic stenosis, periodontal disease, htn, hlp who presents with persistent bleeding following a dental extraction approximately 12 hours prior. Initially, nursing staff applied surgifoam to the
area and patient bled through this right away and through multiple packets of gauze pads. TXA was than applied to gauze pad and pressure was held. There were multiple instances where bleeding was controlled but than it would restart after patient
would vomit from swallowing blood. Suspect clot would be dislodged during these instances. Patient did report some dizziness after multiple episodes of vomiting and persistent bleeding. IV was started pt given zofran and IV fluids feeling much
better. Suspect leukocytosis from persistent vomiting. TXA was applied again with no relief. Dental packing and pressure gauze placed in mouth. Case reviewed with ED attending. I also held direct pressure with my finger and lidocaine with
epinephrine was injected. Finally, the bleeding was controlled. Attempted to get into contact with Judie Dunham patient's dentist office however they do not have a dentist classification officer. Advised patient to call the office for urgent folllow up visit
when the office opens at 8 am. Pt stable for discharge
Past History
Past History
ED Past Medical History: None
ED Past Surgical History: None
Social History
Tobacco: Non-smoker
Review of Systems
Review of Systems
All Other Systems: ROS reviewed and negative except as documented in HPI and ROS
Phy Exam
Physical Exam
Physical Exam:
see hpi
Course
Orders/Labs/Results
Orders:
Orders
05/20/25 01:53
Complete Blood Count/With Diff Urgent
05/20/25 03:45
Tranexamic Acid 1,000 mg TOPICAL NOW STA
05/20/25 04:34
Tranexamic Acid 1,000 mg .ROUTE .STK-MED ONE
05/20/25 04:41
Ondansetron Injectable [Zofran] 4 mg IV NOW STA
05/20/25 04:59
Comprehensive Metabolic Panel Urgent
05/20/25 06:15
Ondansetron Injectable [Zofran] 4 mg .ROUTE .STK-MED ONE
Abnormal Lab Results
05/20/25 05/20/25
01:53 04:59
WBC 15.0 H 10^3/uL
(4.8-10.8)
Hct 36.1 L %
(37.0-47.0)
MPV 10.7 H fL
(7.4-10.4)
Abs Immat Gran (auto) 0.1 H 10^3/uL
(0-0.05)
Absolute Neuts (auto) 12.4 H 10^3/uL
(1.4-6.5)
Absolute Monos (auto) 1.0 H 10^3/uL
(0.1-0.6)
Neutrophils % 82.6 H %
(42.2-75.2)
Lymphocytes % 9.9 L %
(20.5-51.1)
BUN 36 H mg/dl
(7-17)
Glucose 167 H mg/dl
(70-99)
05/20/25 01:53
05/20/25 04:59
Vital Signs
Initial and Last Documented VS:
Initial Vital Signs
Pulse Resp BP Pulse Ox
98 22 170/110 100
05/19/25 23:49 05/19/25 23:49 05/19/25 23:49 05/19/25 23:49
Last Documented Vital Signs
Temp Pulse Resp BP Pulse Ox
98.3 F 94 20 154/77 98
05/20/25 04:00 05/20/25 01:58 05/20/25 01:58 05/20/25 04:45 05/20/25 04:17
MDM/Problems Addressed
Differential Diagnosis Includes:
see hpi
*Pulse Oximetry
SaO2: 98
Oxygen Mode of Delivery: Room air
*Critical Care Note
Total Time (30-74mins, 75-104mins- exclusive of procedures): Not Applicable
ED Attending Note
-
Portions of this chart may have been created with voice recognition software.� Occasional wrong word or��sound alike� substitutions may have occurred due to the inherent limitations of voice recognition software.
Discharge Plan
Departure
Patient Disposition: Home (Routine Discharge)
Date of Disposition: 05/20/25
Time of Disposition: 07:01
Patient with high blood pressure during this ER visit?: Yes
Condition: Good
Discharge Problem:
Surgical wound hemorrhage after dental procedure
Instructions: Bleeding Gums (DC), BLOOD PRESSURE
Prescriptions:
No Action
docusate sodium [Dulcolax Stool Softener (dss)] 100 MG capsule
300 mg PO DAILY
rosuvastatin 40 MG tablet
40 mg PO QPM
polyethylene glycol 3350 [Miralax] 17 gram Powder In Packet
17 g PO DAILY
fluticasone propionate 50 mcg/actuation [place],Suspension
1 spray INTRANASAL PRN PRN (Reason: allergies)
ezetimibe 10 mg Tablet
10 mg PO QPM
Acidophilus Tablet,Chewable
3 tab PO DAILY
pimecrolimus 1 % Cream
1 applic TOPICAL PRN PRN (Reason: dermatitis)
aspirin 81 mg Tablet,Chewable
81 mg PO DAILY
triamcinolone acetonide 0.05 % Ointment
1 applic TOPICAL DAILY PRN (Reason: rash)
diphenhydramine HCl [Benadryl] 25 mg Capsule
25 mg PO HS PRN (Reason: allergy symptoms)
acetaminophen 325 mg Tablet
650 mg PO Q4HPRN PRN (Reason: mild pain,headache,temp >101F ) Qty: 0 0RF
metoprolol tartrate 25 mg Tablet
25 mg PO BID Qty: 60 1RF
oxycodone 5 mg Tablet
2.5 mg PO Q6HPRN PRN (Reason: severe pain) Qty: 15 0RF
furosemide [Lasix] 40 mg tablet
40 mg PO BID Qty: 7 0RF
furosemide [Lasix] 40 mg tablet
40 mg PO DAILY Qty: 7 0RF
Rx Instructions:
start on 10/
potassium chloride 20 mEq tablet extended release
20 meq PO DAILY Qty: 14 0RF
Rx Instructions:
Only take while on lasix
Referrals:
Alejandra Walter MD [Family Provider, Family Practice]
Activity Restrictions/Additional Instructions:
Please call the dental office when they open at 8 am.
PLEASE RETURN TO THE ER SHOULD YOU DEVELOP AN ACUTE RETURN OF YOUR SYMPTOMS, DIZZINESS, LIGHTHEADEDNESS, CHEST PAIN, SHORTNESS OF BREATH, FAINTING SPELLS, OR ANY OTHER SIGNS OR SYMPTOMS WORRISOME TO YOU.
Interventions
Interventions:
*Risk Screen - Suicide Last Done: 05/19/25 23:49
*General Assessment Last Done: 05/20/25 04:14
*Neglect/Abuse Screening Last Done: 05/19/25 23:49
*ED- Fall Risk Assessment Last Done: 05/20/25 04:15
*ED COVID-19 Vaccine History Last Done: 05/20/25 04:15
*Nursing Disposition Last Done: 05/20/25 07:24
Discharge Date and Time
Discharge Date/Time: 05/20/25 07:25
Print Language: TELUGU
[2025-05-20 04:45] VITALS: BP 154/77
[2025-05-20] MEDS: TRANEXAMIC ACID 500 MG TOPICAL (04:47)
[2025-05-20] MEDS: ZOFRAN 4 MG IV (04:50)
[2025-05-20 05:33] LABS: ALT (SGPT) 24 U/L (0-35); AST (SGOT) 33 U/L (14-36); Albumin 4.3 g/dl (3.5-5.0); Alkaline Phosphatase 59 U/L (38-126); Blood Urea Nitrogen 36 mg/dl (7-17); Calcium 9.3 mg/dl (8.4-10.2); Carbon Dioxide 23 mmol/L (22-30); Chloride 107 mmol/L (98-107); Glucose 167 mg/dl (70-99); Potassium 4.3 mmol/L (3.5-5.1); Sodium 137 mmol/L (135-145); Total Bilirubin 0.7 mg/dl (0.2-1.3); eGFR > 60.00
== END 2025-05-20 07:25 | disposition home or self-care (01) ==
LOC: EMR 23:37
PROVIDERS: Physician Assistant; EMERGENCY PHYSICIAN Emergency Medicine; FAMILY PHYSICIAN Family Medicine
DX: K91.840 Postprocedural hemorrhage of a digestive system organ or structure following a digestive system procedure (principal); I35.0 Nonrheumatic aortic (valve) stenosis; I10 Essential (primary) hypertension; Z79.82 Long term (current) use of aspirin
CPT/HCPCS: 99283; 96374; 80053; 85025

== ENCOUNTER → 2025-11-03 13:48 | Outpatient (REF) | payer OTHER, SELFPAY | LOC: WDC 13:48 | PROVIDERS: FAMILY PHYSICIAN Family Medicine | DX: Z12.31 Encounter for screening mammogram for malignant neoplasm of breast (principal) | CPT/HCPCS: 77063; 77067 ==